=== PATIENT | male | born 1990 | race Caucasian/White ===

== ENCOUNTER 2016-10-27 15:30 | Emergency (ER) | payer OTHER ==
[~2016-10-27 15:30] MED LIST: ALBUTEROL 3 ML3 ML INH; AMOXIL 250250 MG/5 M G TUBE; ANTIBIOTIC O500 U/GM; ATIVAN0.5 MG G TUBE; ATIVAN1 MG PEG; ATIVAN1 MG PO; ATIVAN2 MG/M1 SL; ATIVAN2 MG/ML PEG; ATIVAN2 MG/ML PO; ATROVENT 0.02%2.5 ML INH; BANZEL400 MG G TUBE; CLARITIN10 MG PEG; CLARITIN5 MG/5 ML G TUBE; DIAPER RASH; DIAPER RASH TOP; DULCOLAX5 MG G TUBE; ERYTHROMYCIN 2% TOP; ERYTHROMYCIN1 GM OPH; ERYTHROMYCIN5 MG/GM TOP; ERYTHROMYCIN5 MG/GM TP; FLONASE120 SPRAY/ NAS; KEPPRA 100M100 MG/ML PEG; KLONOPIN1 MG G TUBE; LAMISIL AT1% TOP; LAMISIL1% TOP; LAMISIL250 MG TOP; LEVETIRACE100 MG/1 M G TUBE; LEVSIN 0.1250.125 MG PO; LORAZEPAM INT2 MG/ML PO; LORAZEPAM2 MG PEG; MAALOX ADVANCE148 ML; MAGNESIUM1.75 GM/30 G TUBE; MIRALAX17 G1 G TUBE; MYSOLINE250 MG G TUBE; NYSTATIN1 POW; NYSTATIN100000 U/2; PERIOGARD473 ML PO; ROBINUL 1MG TABL1 MG PEG; ROBINUL 1MG TABL1 MG PO; ROBITUSSIN COU237 ML G TUBE; SODIUM CHLORIDE3 ML PO; STOOL SOFT50 MG/5 ML G TUBE; TRANS SCOPE PAT1 PAT TOP; TYLENOL 16OMG/51 BOT G TUBE; TYLENOL TAB 32325 MG PEG
[2016-10-27 15:40] VITALS: BP 149/82
--- NOTE | 2016-10-27 17:33 | ED GENERAL ADULT ---
History of Present Illness General Chief Complaint: General Adult Stated Complaint: PT COUGHING UP BLOOD, Source: CAREGIVER Exam Limitations: clinical condition Vital Signs & Intake/Output Vital Signs & Intake/Output Vital Signs Date Time Temp Pulse Resp B/P Pulse O2 O2 Flow FiO2 Ox Delivery Rate 10/27 2120 98.7 116 18 98 Nasal 1.0L Cannula 10/27 1910 97 Room Air 10/27 1540 98.1 117 20 149/82 97 Room Air Allergies Coded Allergies: NO KNOWN ALLERGIES (10/27/16) Reconcile Medications Acetaminophen (Tylenol Tab 325 MG) 325 MG TAB 1 TAB PEG Q4P PRN FEVER/PAIN Albuterol Sulfate (Proventil) 2.5 MG/3 ML NEB 3 ML INH Q4P PRN SHORTNESS OF BREATH (Reported) Bacitracin 500 U/GM OIN 1 KATT PRN PRN INFECTION (Reported) Bisacodyl (Dulcolax) 5 MG ECT 10 MG G TUBE PRN CONSTIPATION (Reported) Chlorhexidine Gluconate (Periogard) 0.12 % MOUTHWASH 15 ML PO BID MOUTH ( Reported) Clonazepam (Klonopin) 1 MG TAB 1 TAB G TUBE 8AM ANXIETY (Reported) Dextromethorphan Hydrobromid (Robitussin Cough Dm 10 MG/5 Ml-100 MG/5 Ml 23) 237 ML LENNY 10 ML G TUBE EVERY 4 HRS/AWAKE PRN COUGH (Reported) Docusate Sodium (Stool Softener) 50 MG/5 ML LIQUID 10 ML G TUBE DAILY STOOL SOFTENER (Reported) Erythromycin 2% GEL 1 KATT TOP BID RASH (Reported) Fluticasone Propionate (Flonase) 120 SPRAY/BOT SPR 1 SPRAY SHEYLA PRN ALLERGIES (Reported) Glycopyrrolate (Robinul 1MG Tablet) 1 MG TAB 1 TAB PEG Q8 to control secretions Guaifenesin (Mucinex) 600 MG TAB.ER.12H 1 TAB PO BID COUGH Guaifenesin/Dextromethorphan (Adult Robitussin Peak Cold Liq) 100 MG-10 MG/5 ML LIQUID 10 ML G TUBE TID PRN COUGH TAKE FOR 7 DAYS Ipratropium [place] 2.5 ML NEB 2.5 ML INH Q8 PRN SHORTNESS OF BREATH Levetiracetam 100 MG/ML SOLUTION 10 ML G TUBE BID SEIZURES (Reported) Levofloxacin (Levaquin) 500 MG TABLET 1 TAB PO DAILY PRN PNA Levofloxacin (Levaquin) 500 MG TABLET 1 PRIETO G TUBE DAILY PNA Loratadine (Claritin) 5 MG/5 ML SYR 10 ML G TUBE DAILY ALLERGIES (Reported) Lorazepam 2 MG TAB 1 TAB PEG QPM ANXIETY (Reported) LORAZEPAM (Lorazepam Intensol Oral Soln 2MG/Ml) 2 MG/ML LENNY 1 MG PO PRN SEIZURE (Reported) Nystatin 1 POW POW 1 KATT TID PRN FUNGAL RASH (Reported) Polyethylene Glycol 3350 (Miralax) 17 GRAM POWD.PACK 1 PAC G TUBE DAILY CONSTIPATION (Reported) dissolve in water Primidone (Mysoline) 250 MG TAB 250 MG G TUBE 8AM SEIZURES (Reported) Primidone (Mysoline) 250 MG TAB 500 MG G TUBE 2000 SEIZURES (Reported) Rufinamide (Banzel) 400 MG TAB 4 TAB G TUBE BID SEIZURES (Reported) Sodium Chloride For Inhalation (Sodium Chloride) 0.9 % VIAL.NEB 1 VIAL PO Q6 BREATHING PROBLEMS (Reported) Terbinafine Hydrochloride (Lamisil) 1% CRE 1 KATT TOP AT BEDTIME TOE (Reported ) Zinc Oxide (Diaper Rash) 1 OIN OIN 1 KATT TOP TID PRN REDNESS AROUND G TUBE ( Reported) Triage Note: TRIAGE: PT TO ER WITH [facility] STAFF MEMBER C/C CONGESTED COUGH AND HAD 1 EPISODE OF PHLEGM WITH SOME BLOOD IN IT. PT PMHX INCLUDES CEREBRAL PALSY, USES NASAL O2 AT 1L AT BASELINE. Triage Nurses Notes Reviewed? yes Onset: Abrupt Duration: constant Timing: single episode today Severity: moderate Severity Numbers: 5 HPI: PATIENT IS A 26-year-old male with past medical history of severe mental retardation due to cerebral palsy, seizure, scoliosis, on G-tube, multiple episodes of pneumonia last admission was in July to [facility], history is limited due to past medical history in which patient presents to the emergency room noted BY caregiver in which they have noted patient have cough, congestion, and what episode of productive phlegm with TINGELED blood THAT BEGAN TODAY 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 Positive sick contacts at home of pneumonia and bronchitis No fevers no ear tugging no vomiting no apparent distress And currently has been on O2 since his last admission in which she is on 1 L of oxygen at all time (NIELS KOROMA,FRANCESCA) Past History Travel History Traveled to [place] past 21 day No ( ) Medical History Any Pertinent Medical History? see below for history Neurological: PROFOUND INTELLECTUAL D/O CEREBRAL PALSY SEIZURE DISORDER EENT: allergies, DYSPHAGIA RECURRENT ASPIRATIONS Cardiovascular: NONE Respiratory: bronchitis Gastrointestinal: G-TUBE Hepatic: NONE Renal: NONE Musculoskeletal: SCOLIOSIS Psychiatric: NONE Endocrine: NONE Blood Disorders: NONE Cancer(s): NONE MARKETING CONTENT COORDINATOR/Reproductive: NONE History of MRSA: No History of VRE: No History of CDIFF: No Pneumonia Vaccine: 06/19/14 Influenza Vaccine: 06/18/16 Surgical History Surgical History: RHODES MOHAN status post vagal nerve stimulator Psychosocial History Who do you live with Paid Attentent What is your primary language Malawian Tobacco Use: Never used ETOH Use: 5 Illicit Drug Use: U Family History Hx Contributory? No (FRANCESCA ROSA) Review of Systems Review of Systems Constitutional: Reports: see HPI. Denies: chills, fever. EENTM: Reports: no symptoms. Respiratory: Reports: see HPI, cough, hemoptysis. Cardiovascular: Reports: no symptoms. GI: Reports: no symptoms. Genitourinary: Reports: no symptoms. Musculoskeletal: Reports: no symptoms. Skin: Reports: no symptoms. Neurological/Psychological: Reports: no symptoms. Hematologic/Endocrine: Reports: no symptoms. Immunologic/Allergic: Reports: no symptoms. All Other Systems: Reviewed and Negative (FRANCESCA ROSA) Physical Exam Physical Exam General Appearance: no apparent distress, comfortable Head: atraumatic Eyes: Bilateral: normal appearance, EOMI. Ears, Nose, Throat: normal pharynx, normal ENT inspection Respiratory: normal breath sounds, chest non-tender, no respiratory distress, lungs clear Cardiovascular: tachycardia Peripheral Pulses: 2+ radial (R), 2+ radial (L) Gastrointestinal: normal bowel sounds, soft, non-tender Extremities: normal capillary refill, no edema Neurologic/Psych: awake, alert Skin: intact, normal color, warm/dry Core Measures ACS in differential dx? No CVA/TIA Diagnosis: No Severe Sepsis Present: No Septic Shock Present: No (FRANCESCA ROSA) Progress Differential Diagnoses I considered the following diagnoses in my evaluation of the patient: [Pulmonary embolism, bronchitis, pneumonia, influenza, upper respiratory infection, sepsis] Plan of Care: Orders Procedure Date/time Status RAPID VIRAL INFLUENZA A 10/27 1742 Complete BLOOD CULTURE 10/27 1742 Active D-DIMER 10/27 1742 Complete COMPREHENSIVE METABOLIC PANEL 10/27 1742 Complete CBC WITHOUT DIFFERENTIAL 10/27 1742 Complete Current Medications Sig/Jerrod Start time Last Medication Dose Stop Time Status Admin Non-Formulary 0 SEE ADMIN CRITERIA 10/27 2199 CAN Medication (NON FORMULARY) Laboratory Tests 10/27/161753: Anion Gap 11, Estimated GFR > 60, BUN/Creatinine Ratio 30.0 H, Glucose 101 H, Calcium 9.8, Total Bilirubin 0.4, AST 25, ALT 53, Alkaline Phosphatase 144 H, Total Protein 7.9, Albumin 4.4, Globulin 3.5, Albumin/Globulin Ratio 1.3, D- Dimer 431 H, CBC w Diff NO MAN DIFF REQ, RBC 4.32 L, MCV 88.1, MCH 29.6, RDW 13.5, MPV 9.0, Gran % 79.1 H, Lymphocytes % 12.7 L, Monocytes % 7.6, Eosinophils % 0.2, Basophils % 0.4, Absolute Granulocytes 13.0 H, Absolute Lymphocytes 2.1, Absolute Monocytes 1.2 H, Absolute Eosinophils 0, Absolute Basophils 0.1, PUBS MCHC 33.6 Microbiology 10/27 1801 BLOOD: Blood Culture - RECD 10/27 1756 BLOOD: Blood Culture - RECD Patient currently is in no apparent distress however patient does have history of hemoptysis is tachycardic and immobile which a d-dimer will be evaluated for rule out pulmonary embolism. Due to history of present illness I suspect patient have URI, pneumonia OR bronchitis Patient was afebrile while in the emergency room and had oxygen saturation 98% with 1 L Patient did note on CT scan to have concerns of pneumonia and due to history of present illness and exam findings the patient will be treated for CAP Patient was nontoxic-appearing blood cultures currently are pending and CT angiogram rule out pulmonary embolism Disposition plan with who agrees (NIELS KOROMA,FRANCESCA) Diagnostic Imaging: Viewed by Me: CT Scan. Radiology Impression: acute abnormality Initial ED EKG: none Comments: PATIENT: SHIRLEY BRUNO PRESENT AGE: 26 PATIENT ACCOUNT NO: [id number] : 88 LOCATION: [facility] ORDERING PHYSICIAN: FRANCESCA KOROMA SERVICE DATE: 10/27/16 EXAM TYPE: CAT - CTA CHEST-PULMONARY EMBOLISM EXAMINATION: CT ANGIOGRAM OF THE CHEST WITH AND WITHOUT CONTRAST (CT PULMONARY ANGIOGRAM FOR PE) CLINICAL INFORMATION: Elevated d-dimer. COMPARISON: CT chest 07/29/2016 TECHNIQUE: Prior to contrast administration, noncontrast localization images were obtained. Subsequently, multidetector volumetric imaging was performed from the thoracic inlet to below the diaphragms following the administration of 60 mL Optiray 320 intravenous contrast. No contrast reaction reported Sagittal, coronal, and MIP oblique sagittal reformatted images were obtained on the CT workstation, uploaded to PACS, and reviewed. Total exam dose-length product 451.29 mGy-cm FINDINGS: QUALITY OF STUDY/CONTRAST BOLUS: Satisfactory. Thoracic cage deformity from scoliosis. PULMONARY ARTERIES: No central or segmental pulmonary emboli. THORACIC AORTA: No aneurysm or dissection. LUNG: Rounded mass density in the left upper lobe. Measures 4.3 x 4.8 x 4.3 cm. Also in the left lower lobe there is a rounded mass measuring 2.6 x 2.4 x 2.5 cm. Both of these lesions are new since CAT scan of 07/29/2016. Right lung is clear. PLEURA: No pleural effusion or pneumothorax. MEDIASTINUM: Normal heart size. No pericardial effusion. No hilar or mediastinal lymphadenopathy. No evidence of septal bowing or right heart strain. CHEST WALL/AXILLA: No axillary or internal mammary lymphadenopathy. OSSEOUS STRUCTURES: Scoliosis with pericolonic and rods in the spine. UPPER ABDOMEN: Unremarkable. No reflux of contrast into the hepatic veins to suggest elevated right heart pressures. IMPRESSION: 1. No evidence of pulmonary embolism. 2. 2 rounded masses in left lung. These are new since the CAT scan of 07/29/2016. Indeterminate for etiology. Would suspect an inflammatory or infectious etiology given the rapid development since CAT scan of 07/29/2016. Neoplasm though not excluded. Consider interventional radiology consult. VTE: negative for pulmonary embolism. (FRANCESCA ROSA) Departure Departure Disposition: HOME OR SELF CARE Condition: Stable Clinical Impression Primary Impression: Pneumonia Referrals: KEEGAN GAUTHIER,NORMA (PCP/Family) Additional Instructions: As discussed begin the prescription of Levaquin as directed for the full course. Begin the prescription of guaifenesin as directed for the full course and begin [id number] Tylenol for fevers. If symptoms worsen return to emergency room. Follow-up with your primary care doctor in 2 days. Departure Forms: Customer Survey General Discharge Information Prescriptions: Current Visit Scripts Levofloxacin (Levaquin) 1 TAB PO DAILY PRN PNA #10 TAB Guaifenesin (Mucinex) 1 TAB PO BID #14 TAB Levofloxacin (Levaquin) 1 PRIETO G TUBE DAILY #10 TAB Guaifenesin/Dextromethorphan (Adult Robitussin Peak Cold Liq) 10 ML G TUBE TID PRN COUGH #210 ML TAKE FOR 7 DAYS (FRANCESCA ROSA) PA/MERCHANDISING CONSULTANT Co-Sign Statement Statement: ED Attending supervision documentation- [] I saw and evaluated the patient. I have also reviewed all the pertinent lab results and diagnostic results. I agree with the findings and the plan of care as documented in the PA's/MERCHANDISING CONSULTANT's documentation. [X] I have reviewed the ED Record and agree with the PA's/MERCHANDISING CONSULTANT's documentation. [] Additions or exceptions (if any) to the PAs/MERCHANDISING CONSULTANT's note and plan are summarized below: [] (JONNY GAUTHIER,ALEJANDRO) Critical Care Note Critical Care Note Critical Care Time: non-applicable (FRANCESCA ROSA)
[2016-10-27 18:29] LABS: ABSOLUTE BASOPHIL COUNT 0.1 /CUMM (0.0-0.2); ABSOLUTE EOSINOPHIL COUNT 0 /CUMM (0.0-0.7); ABSOLUTE LYMPH COUNT 2.1 /CUMM (1.2-3.4); ABSOLUTE MONOCYTE COUNT 1.2 /CUMM (0.10-0.60); BASOPHIL % 0.4 % (0.0-2.0); EOSINOPHIL % 0.2 % (0-5); GRANULOCYTE % 79.1 % (42.2-75.2); HEMATOCRIT 38.1 % (42-52); MEAN CORPUSCULAR HGB 29.6 PG (27.0-31.0); MEAN CORPUSCULAR HGB CONC 33.6 G/DL (33.0-37.0); MEAN CORPUSCULAR VOLUME 88.1 FL (80.0-94.0); PLATELET COUNT 366 /CUMM (130-400); RBC DISTRIBUTION WIDTH 13.5 % (11.5-14.5); RED BLOOD CELL CT 4.32 /CUMM (4.70-6.10); WHITE BLOOD CELL COUNT 16.4 /CUMM (4.8-10.8)
--- NOTE | 2016-10-27 21:29 | CT SCAN REPORT ---
EXAMINATION: CT ANGIOGRAM OF THE CHEST WITH AND WITHOUT CONTRAST (CT PULMONARY ANGIOGRAM FOR PE) CLINICAL INFORMATION: Elevated d-dimer. COMPARISON: CT chest 07/29/2016 TECHNIQUE: Prior to contrast administration, noncontrast localization images were obtained. Subsequently, multidetector volumetric imaging was performed from the thoracic inlet to below the diaphragms following the administration of 60 mL Optiray 320 intravenous contrast. No contrast reaction reported Sagittal, coronal, and MIP oblique sagittal reformatted images were obtained on the CT workstation, uploaded to PACS, and reviewed. Total exam dose-length product 451.29 mGy-cm FINDINGS: QUALITY OF STUDY/CONTRAST BOLUS: Satisfactory. Thoracic cage deformity from scoliosis. PULMONARY ARTERIES: No central or segmental pulmonary emboli. THORACIC AORTA: No aneurysm or dissection. LUNG: Rounded mass density in the left upper lobe. Measures 4.3 x 4.8 x 4.3 cm. Also in the left lower lobe there is a rounded mass measuring 2.6 x 2.4 x 2.5 cm. Both of these lesions are new since CAT scan of 07/29/2016. Right lung is clear. PLEURA: No pleural effusion or pneumothorax. MEDIASTINUM: Normal heart size. No pericardial effusion. No hilar or mediastinal lymphadenopathy. No evidence of septal bowing or right heart strain. CHEST WALL/AXILLA: No axillary or internal mammary lymphadenopathy. OSSEOUS STRUCTURES: Scoliosis with pericolonic and rods in the spine. UPPER ABDOMEN: Unremarkable. No reflux of contrast into the hepatic veins to suggest elevated right heart pressures. IMPRESSION: 1. No evidence of pulmonary embolism. 2. 2 rounded masses in left lung. These are new since the CAT scan of 07/29/2016. Indeterminate for etiology. Would suspect an inflammatory or infectious etiology given the rapid development since CAT scan of 07/29/2016. Neoplasm though not excluded. Consider interventional radiology consult. VTE: negative for pulmonary embolism.
[2016-10-27] MEDS ORDERED: LEVAQUIN500 M1 PO (21:50)
[2016-10-27] MEDS ORDERED: MUCINEX600 M1 PO (21:50)
[2016-10-27] MEDS ORDERED: ADULT ROBITUSS118 ML G TUBE (22:05)
[2016-10-27] MEDS ORDERED: LEVAQUIN500 M1 G TUBE (22:05)
== END 2016-10-27 22:58 ==
LOC: ERH 15:30
PROVIDERS: Physician Assistant
DX: J18.9 Pneumonia, unspecified organism (principal)
CPT/HCPCS: 87040; 87804; 87804-59

== ENCOUNTER 2017-03-21 08:48 | Emergency (ER) | payer OTHER, MEDICARE ==
[~2017-03-21] VITALS: Ht 149.9 cm; Wt 63.5 kg
[~2017-03-21 08:48] MED LIST changes: +ADULT ROBITUSS118 ML G TUBE; -ALBUTEROL 3 ML3 ML INH; +ALBUTEROL2.5 MG/3 M INH/SOL; -ANTIBIOTIC O500 U/GM; +BACITRACIN28.4 GM TOP; +BANZEL G TUBE; -BANZEL400 MG G TUBE; +CLARITIN5 MG/5 M1 G TUBE; -DIAPER RASH TOP; +DIAPER RASH57 GM TOP; -ERYTHROMYCIN 2% TOP; +ERYTHROMYCIN 2%60 ML TOP; +FLONASE ALLERG9.9 ML NAS; -FLONASE120 SPRAY/ NAS; +KLONOPIN1 M1 PO; -KLONOPIN1 MG G TUBE; +LAMISIL AT30 GM TOP; -LAMISIL1% TOP; +LEVAQUIN500 M1 G TUBE; +LEVAQUIN500 M1 PO; +LORAZEPAM I2 MG/1 ML SL; -LORAZEPAM2 MG PEG; +MUCINEX600 M1 PO; +MYSOLINE250 M1 G TUBE; -MYSOLINE250 MG G TUBE; +NYSTATIN1 EAC8 TOP; -NYSTATIN1 POW
--- NOTE | 2017-03-21 09:47 | RADIOLOGY REPORT ---
EXAMINATION: XR PORTABLE CHEST CLINICAL INFORMATION: Shortness of breath. COMPARISON: Multiple priors, most recently 01/13/2017. TECHNIQUE: Portable frontal view of the chest was obtained. FINDINGS: Chronic chest wall deformity with scoliosis. Spinal hardware in place. Left chest wall generator again noted. Low lung volumes. Retrocardiac opacity noted. The right lung is clear. No pneumothorax. The cardiomediastinal silhouette is unchanged. Chronic irregularity at the left shoulder. IMPRESSION: Retrocardiac opacity may represent atelectasis or pneumonia. Aspiration is a consideration.
--- NOTE | 2017-03-21 09:59 | ED DYSPNEA/ASTHMA COMPLAINT ---
History of Present Illness General Chief Complaint: Dyspnea (COPD, CHF, Other) Stated Complaint: BIBA FROSNF FOR LOW O2 SAT Vital Signs & Intake/Output Vital Signs & Intake/Output Vital Signs Date Time Temp Pulse Resp B/P B/P Pulse O2 O2 Flow FiO2 Mean Ox Delivery Rate 03/21 1008 98.0 89 22 119/72 96 Nasal 2.0L Cannula 03/21 0936 97 Nasal 2.0L Cannula 03/21 0925 95 Nasal 3.0L Cannula 03/21 0924 97.1 101 24 112/63 95 Nasal 3.0L Cannula Allergies Coded Allergies: NO KNOWN ALLERGIES (10/27/16) Reconcile Medications Acetaminophen (Tylenol Tab 325 MG) 325 MG TAB 1 TAB PEG Q4P PRN FEVER/PAIN Albuterol Sulfate (Proventil) 2.5 MG/3 ML NEB 3 ML INH Q4P PRN SHORTNESS OF BREATH (Reported) Bacitracin 500 U/GM OIN 1 KATT PRN PRN INFECTION (Reported) Bisacodyl (Dulcolax) 5 MG ECT 10 MG G TUBE PRN CONSTIPATION (Reported) Chlorhexidine Gluconate (Periogard) 0.12 % MOUTHWASH 15 ML PO BID MOUTH ( Reported) Clonazepam (Klonopin) 1 MG TAB 1 TAB G TUBE 8AM ANXIETY (Reported) Dextromethorphan Hydrobromid (Robitussin Cough Dm 10 MG/5 Ml-100 MG/5 Ml 23) 237 ML LENNY 10 ML G TUBE EVERY 4 HRS/AWAKE PRN COUGH (Reported) Docusate Sodium (Stool Softener) 50 MG/5 ML LIQUID 10 ML G TUBE DAILY STOOL SOFTENER (Reported) Erythromycin 2% GEL 1 KATT TOP BID RASH (Reported) Fluticasone Propionate (Flonase) 120 SPRAY/BOT SPR 1 SPRAY SHEYLA PRN ALLERGIES (Reported) Glycopyrrolate (Robinul 1MG Tablet) 1 MG TAB 1 TAB PEG Q8 to control secretions Guaifenesin (Mucinex) 600 MG TAB.ER.12H 1 TAB PO BID COUGH Guaifenesin/Dextromethorphan (Adult Robitussin Peak Cold Liq) 100 MG-10 MG/5 ML LIQUID 10 ML G TUBE TID PRN COUGH TAKE FOR 7 DAYS Ipratropium [place] 2.5 ML NEB 2.5 ML INH Q8 PRN SHORTNESS OF BREATH Levetiracetam 100 MG/ML SOLUTION 10 ML G TUBE BID SEIZURES (Reported) Levofloxacin (Levaquin) 500 MG TABLET 1 TAB PO DAILY PRN PNA Levofloxacin (Levaquin) 500 MG TABLET 1 PRIETO G TUBE DAILY PNA Loratadine (Claritin) 5 MG/5 ML SYR 10 ML G TUBE DAILY ALLERGIES (Reported) Lorazepam 2 MG TAB 1 TAB PEG QPM ANXIETY (Reported) LORAZEPAM (Lorazepam Intensol Oral Soln 2MG/Ml) 2 MG/ML LENNY 1 MG PO PRN SEIZURE (Reported) Nystatin 1 POW POW 1 KATT TID PRN FUNGAL RASH (Reported) Polyethylene Glycol 3350 (Miralax) 17 GRAM POWD.PACK 1 PAC G TUBE DAILY CONSTIPATION (Reported) dissolve in water Primidone (Mysoline) 250 MG TAB 250 MG G TUBE 8AM SEIZURES (Reported) Primidone (Mysoline) 250 MG TAB 500 MG G TUBE 2000 SEIZURES (Reported) Rufinamide (Banzel) 400 MG TAB 4 TAB G TUBE BID SEIZURES (Reported) Sodium Chloride For Inhalation (Sodium Chloride) 0.9 % VIAL.NEB 1 VIAL PO Q6 BREATHING PROBLEMS (Reported) Terbinafine Hydrochloride (Lamisil) 1% CRE 1 KATT TOP AT BEDTIME TOE (Reported ) Zinc Oxide (Diaper Rash) 1 OIN OIN 1 KATT TOP TID PRN REDNESS AROUND G TUBE ( Reported) Triage Note: 27 YEAR OLD MALE TO ER VIA AMBULANCE FROM LOCAL [facility] FOR LOW O2 SATS, PT IS O2 DEPENDENT ON 2L VIA NC AND PER STAFF SATURATIONS HAVE BEEN DROPPING SINCE YESTERDAY. ON ARRIVAL PT ON 4L VIA NC AND O2 SAYS 92 5, PT NOTED WITH RHONCHI AND LOOSE COUGH, PT HAS HISTORY OF ASPIRATION, HAS G-TUBE TO L SIDE ABD. RESP CALLED AND MELISSA AT BEDSIDE TO SUCTION PT, PT ABLE TO COUGH UP MODERATE AMOUNT OF THICK YELLOW SPUTUM.O2 SAT INCREASED TO 97 % ON THE 4L AFTER SUCTION COMPLETE. AFEBRILE AT THIS TIME. O2 DECREASED TO 3L VIA NC AT THIS TIME. WILL CONTINUE TO MONITOR. HPI: Mr. Nguyễn 27 YO M PMH of cerebral palsy, scoliosis, dysphagia, intellectual disorder, H/O seizures and spinal surgery was brought to ED from [facility] facility with CC of dyspnea. Patient can't speak so we looked into his previous history. According to his care trainer usually he is on 2L of O2 and that's his baseline but last night they noticed the desaturation and they sent the patient to ED this morning. When i went to saw the patient he was on 4L of O2 with saturation of 89% and crackles all over his chest and feeding tube(G-tube). Patient was in moderate distress even with O2 untill the respuiratory therapist came in and did the suction and removed the large thick mucus plug. Now patient is back to his baseline 2L of O2 and 98% saturation. (CATINA SPENCER MD) General Source: old records, EMS, W10 Exam Limitations: physical impairment Triage Nurses Notes Reviewed? yes (ZANDER CAPUTO MD) Past History Travel History Traveled to [place] past 21 day No Medical History Neurological: PROFOUND INTELLECTUAL D/O CEREBRAL PALSY SEIZURE DISORDER EENT: allergies, DYSPHAGIA RECURRENT ASPIRATIONS Cardiovascular: NONE Respiratory: bronchitis Gastrointestinal: G-TUBE Hepatic: NONE Renal: NONE Musculoskeletal: SCOLIOSIS Psychiatric: NONE Endocrine: NONE Blood Disorders: NONE Cancer(s): NONE TOMOGRAPHY TECHNOLOGIST/Reproductive: NONE History of MRSA: No History of VRE: No History of CDIFF: No Surgical History Surgical History: RHODES MOHAN status post vagal nerve stimulator Psychosocial History Who do you live with Paid Attentent What is your primary language Turkish Tobacco Use: Never used ETOH Use: denies use Illicit Drug Use: denies illicit drug use (CATINA SPENCER MD) Medical History Any Pertinent Medical History? see below for history Family History Hx Contributory? No (ZANDER CAPUTO MD) Review of Systems Review of Systems Constitutional: Reports: see HPI. Respiratory: Reports: see HPI. (ZANDER CAPUTO MD) Physical Exam Physical Exam General Appearance: awake, moderate distress Eyes: Bilateral: normal appearance. Neck: normal inspection Respiratory: crackles, stridor Cardiovascular: regular rate/rhythm Gastrointestinal: normal bowel sounds (CATINA SPENCER MD) Physical Exam Head: atraumatic Ears, Nose, Throat: normal pharynx Neurologic/Psych: AT BASELINE Skin: intact, normal color Core Measures ACS in differential dx? No Severe Sepsis Present: No Septic Shock Present: No (ZANDER CAPUTO MD) Progress Differential Diagnosis: asthma, pneumonia, Aspiration pneumonia upper airway obstruction Plan of Care: Orders Procedure Date/time Status BLOOD CULTURE 03/21 917 Active COMPREHENSIVE METABOLIC PANEL 03/21 917 Complete CBC WITHOUT DIFFERENTIAL 03/21 917 Complete Laboratory Tests 03/21/17 1002: Anion Gap 12, Estimated GFR > 60, BUN/Creatinine Ratio 32.5 H, Glucose 106 H, Calcium 9.6, Total Bilirubin 0.3, AST 18, ALT 44, Alkaline Phosphatase 157 H, Total Protein 8.0, Albumin 4.9, Globulin 3.1, Albumin/Globulin Ratio 1.6, CBC w Diff MAN DIFF ORDERED, RBC 4.80, MCV 89.0, MCH 29.7, RDW 14.5, MPV 9.4, Gran % 84.0 H, Lymphocytes % 8.4 L, Monocytes % 6.8, Eosinophils % 0.7, Basophils % 0.1, Absolute Granulocytes 10.8 H, Absolute Lymphocytes 1.1 L, Absolute Monocytes 0.9 H, Absolute Eosinophils 0.1, Absolute Basophils 0, Platelet Estimate ADEQUATE, Normocytic RBCs VERIFIED, Normochromic RBCs VERIFIED, PUBS MCHC 33.4 Microbiology 03/21 935 BLOOD: Blood Culture - RECD 03/21 917 BLOOD: Blood Culture - ORD Looking at his history and physical we planned to ordern O2, suction, labs, c- xray, blood cultures and atrovent and albuterol. He is afibrile but we are suspecting aspiration pneumonia so ordered blood cultures and to relieve bronchospasm and crackles we will nebulize him with atrovent and albuterol. We will assess the patient again and look at the lab results for further management. (TJ GAUTHIER,CATINA) Diagnostic Imaging: Viewed by Me: Radiology Read. Discussed w/RAD: Radiology Read. CXR Impression: PATIENT: SHIRLEY NGUYỄN PRESENT AGE: 27 PATIENT ACCOUNT NO: [id number] : 88 LOCATION: [facility] ORDERING PHYSICIAN: CATINA SPENCER MD SERVICE DATE: 03/21/17 EXAM TYPE: RAD - XRY -PORTABLE CHEST XRAY EXAMINATION: XR PORTABLE CHEST CLINICAL INFORMATION: Shortness of breath. COMPARISON: Multiple priors, most recently 01/13/2017. TECHNIQUE: Portable frontal view of the chest was obtained. FINDINGS: Chronic chest wall deformity with scoliosis. Spinal hardware in place. Left chest wall generator again noted. Low lung volumes. Retrocardiac opacity noted. The right lung is clear. No pneumothorax. The cardiomediastinal silhouette is unchanged. Chronic irregularity at the left shoulder. IMPRESSION: Retrocardiac opacity may represent atelectasis or pneumonia. Aspiration is a consideration. DICTATED BY: ALFRED ERICKSON MD DATE/TIME DICTATED:03/21/17940 RESOURCE ANALYST: CHAY DATE/TIME TRANSCRIBED:03/21/17940 CONFIDENTIAL, DO NOT COPY WITHOUT APPROPRIATE AUTHORIZATION. <Electronically signed in Other Vendor System> SIGNED BY: ALFRED ERICKSON MD 03/21/17 8106 Initial ED EKG: none Comments: Patient coughed up and was helped by respiratory with suctioning of very thick mucous plug. After the mucous plug was out of his oxygen saturation normalized and he appeared a lot more comfortable. (PATITO GAUTHIER,ZANDER Meyer) Departure Departure Condition: Stable Referrals: NORMA ALLISON MD (PCP/Family) Departure Forms: Customer Survey General Discharge Information (TJ GAUTHIER,CATINA) Departure Disposition: ACUTE REHAB FACILITY Clinical Impression Primary Impression: Mucus plugging of bronchi Additional Instructions: REUTRN FOR ANY CONCERNS Resident Co-Sign Statement Statement: ED Attending supervision documentation- [X] I saw and evaluated the patient. I have also reviewed all the pertinent lab results and diagnostic results. I agree with the findings and the plan of care as documented in the Resident's documentation. [X] I have reviewed the ED Record and agree with the Resident's documentation. [] Additions or exceptions (if any) to the Resident's note and plan are summarized below: [Patient sent in for evaluation of dyspnea. Patient has cerebral palsy and has a PEG tube in. Patient does have a history of aspiration pneumonia. There's been no vomiting. No fevers. Positive nonproductive but wet sounding cough. On exam he does have a lot of upper airway sounds. After the mucous plug was removed his lungs are clear to auscultation bilaterally.] (ZANDER CAPUTO MD) Critical Care Note Critical Care Note Critical Care Time: non-applicable (ZANDER CAPUTO MD)
[2017-03-21 10:08] VITALS: BP 119/72
[2017-03-21 10:10] LABS: ABSOLUTE BASOPHIL COUNT 0 /CUMM (0.0-0.2); ABSOLUTE EOSINOPHIL COUNT 0.1 /CUMM (0.0-0.7); ABSOLUTE GRANULOCYTE CT 10.8 /CUMM (1.4-6.5); ABSOLUTE LYMPH COUNT 1.1 /CUMM (1.2-3.4); ABSOLUTE MONOCYTE COUNT 0.9 /CUMM (0.10-0.60); BASOPHIL % 0.1 % (0.0-2.0); EOSINOPHIL % 0.7 % (0-5); HEMATOCRIT 42.8 % (42-52); MEAN CORPUSCULAR HGB 29.7 PG (27.0-31.0); MEAN CORPUSCULAR HGB CONC 33.4 G/DL (33.0-37.0); MEAN PLATELET VOLUME 9.4 FL (7.4-10.4); PLATELET COUNT 258 /CUMM (130-400); RBC DISTRIBUTION WIDTH 14.5 % (11.5-14.5); WHITE BLOOD CELL COUNT 12.9 /CUMM (4.8-10.8)
== END 2017-03-21 12:04 ==
LOC: ERH 08:48
PROVIDERS: Student in an Organized Health Care Education/Training Program
DX: T17.900A Unspecified foreign body in respiratory tract, part unspecified causing asphyxiation, initial encounter (principal)
CPT/HCPCS: 1263; 1342; 87040

== ENCOUNTER 2017-03-31 09:15 | Inpatient (IN) | payer OTHER, MEDICARE ==
[~2017-03-31] VITALS: Ht 152.4 cm; Wt 68.0 kg
--- NOTE | 2017-03-31 09:20 | ED DYSPNEA/ASTHMA COMPLAINT ---
History of Present Illness General Chief Complaint: Dyspnea (COPD, CHF, Other) Stated Complaint: BIBA, SOB Source: old records, EMS Exam Limitations: MR Allergies Coded Allergies: NO KNOWN ALLERGIES (10/27/16) Reconcile Medications Acetaminophen (Tylenol) 325 MG TABLET 2 TAB PO Q4 HRS NEEDED PRN MILD PAIN/ FEVER (Reported) Albuterol Sulfate 2.5 MG/3 ML (0.083 %) VIAL.NEB 1 Vial INH/LENNY Q4P PRN WHEEZING (Reported) Bacitracin 500 UNIT/GRAM OINT...G. 1 KATT TOP 4 TIMES/DAY AFFECTED AREAS ( Reported) apply to affected area(s) Clonazepam (Klonopin) 1 MG TABLET 1 TAB PO DAILY ANXIETY (Reported) Docusate Sodium (Stool Softener) 50 MG/5 ML LIQUID 10 ML G TUBE DAILY STOOL SOFTENER (Reported) Erythromycin Base/Ethanol (Erythromycin 2% Solution) 2 % SOLUTION 1 KATT TOP BID RASH (Reported) Fluticasone Propionate (Flonase Allergy Relief) 50 MCG/ACTUATION SPRAY.SUSP 1 SPRAY SHEYLA DAILY ALLERGIES (Reported) Glycopyrrolate 1 MG TABLET 1 TAB PO Q8 SECRETION (Reported) Guaifenesin/Dextromethorphan (Adult Robitussin Peak Cold Liq) 100 MG-10 MG/5 ML LIQUID 10 ML G TUBE TID PRN COUGH TAKE FOR 7 DAYS Ipratropium [place] 0.2 MG/ML (0.02 %) SOLUTION 1 Vial INH/LENNY Q6 BREATHING PROBLEMS (Reported) Lactose-Reduced Food/Fiber (Jevity 1.5 Sam Liquid) 0.06 GRAM-1.5 KCAL/ML LIQUID 1 CAN G TUBE 5 TIMES A DAY SUPPLEMENT (Reported) Loratadine (Claritin) 5 MG/5 ML SOLUTION 10 ML G TUBE DAILY ALLERGIES ( Reported) Lorazepam (Ativan) 2 MG TABLET 1 TAB PO AT BEDTIME ANXIETY (Reported) Lorazepam (Lorazepam Intensol) 2 MG/ML ORAL.CONC 1 ML SL DAILY PRN AFTER SEIZURE (Reported) Nystatin 1 BILLION UNIT POWDER.EA. 1 KATT TOP BID PRN AFFECTED AREAS (Reported ) Perampanel (Fycompa) 6 MG TABLET 1 TAB G TUBE DAILY SEIZURES (Reported) Polyethylene Glycol 3350 (Miralax) 17 GRAM POWD.PACK 1 PAC G TUBE DAILY CONSTIPATION (Reported) dissolve in water Primidone (Mysoline) 250 MG TABLET 1 TAB G TUBE DAILY SEIZURES (Reported) Primidone (Mysoline) 250 MG TABLET 2 TAB G TUBE QPM SEIZURES (Reported) Rufinamide (Banzel) 400 MG TABLET 4 TAB G TUBE BID SEIZURES (Reported) Sodium Chloride For Inhalation (Sodium Chloride) 0.9 % VIAL.NEB 1 VIAL PO Q6 BREATHING PROBLEMS (Reported) Terbinafine HCl (Lamisil At) 1 % CREAM..G. 1 KATT TOP AT BEDTIME NAILS ( Reported) Zinc Oxide (Diaper Rash) 10 % OINT...G. 1 KATT TOP DAILY PRN AFFECTED AREAS ( Reported) Triage Nurses Notes Reviewed? yes Onset: Abrupt Duration: day(s): (1), constant Timing: recent history Severity: moderate Prior Episodes/Possible Cause: frequent episodes Associated Symptoms: cough HPI: 27 year old male with history of severe mental retardation due to cerebral palsy , seizure, scoliosis, on G-tube feeding, history of aspiration pna presents brought in by a halfway after the patient was noted to have low O2 sats. He was seen here 10 days ago for similar symptoms and was discharged home. On arrival patient offers no history secondary to MR. He is nonverbal at baseline offers no complaints afebrile. No modifying factors or assocaited sx otherwise (FRANCESCA VERDIN) Vital Signs & Intake/Output Vital Signs & Intake/Output Vital Signs Date Time Temp Pulse Resp B/P B/P Pulse O2 O2 Flow FiO2 Mean Ox Delivery Rate 03/31 1309 97.0 97 20 120/70 100 Nasal 3.0L Cannula 03/31 1015 96.2 104 20 126/72 94 Nasal 3.0L Cannula 03/31 0940 96 Nasal 3.0L Cannula Past History Travel History Traveled to [place] past 21 day No Medical History Any Pertinent Medical History? see below for history Neurological: PROFOUND INTELLECTUAL D/O CEREBRAL PALSY SEIZURE DISORDER EENT: allergies, DYSPHAGIA RECURRENT ASPIRATIONS Cardiovascular: NONE Respiratory: bronchitis Gastrointestinal: G-TUBE Hepatic: NONE Renal: NONE Musculoskeletal: SCOLIOSIS Psychiatric: NONE Endocrine: NONE Blood Disorders: NONE Cancer(s): NONE SYSTEMS ADMIN/Reproductive: NONE History of MRSA: No History of VRE: No History of CDIFF: No Surgical History Surgical History: RHODES MOHAN status post vagal nerve stimulator Psychosocial History Who do you live with Paid Attentent What is your primary language Ethiopian Family History Hx Contributory? No (FRANCESCA VERDIN) Review of Systems Review of Systems Constitutional: Reports: see HPI. Comments Review of systems: LIMITED SECONDARY TO PTS HISTORY OF MR/nonverbal no investigative shopper present at this time (FRANCESCA VERDIN) Physical Exam Physical Exam General Appearance: well developed/nourished, lethargic Respiratory: rhonchi Comments: Well-developed well-nourished person in no acute distress HEENT: Normal EENT exam; PERRL, EOMI. HEAD is atraumatic. moist mucous membranes. Neck: Supple, , normal range of motion Back: Nontender, Full range of motion Cardiovascular: Regular rate and rhythms no murmurs rubs Respiratory: Chest nontender.There were no bony deformities, no asymmetry. No respiratory distress. Lung sounds rhonchorous no wheezing Abdomen: Soft, nontender nondistended Extremity: No edema, full range of motion of extremities, Neuro: Alert oriented x3, motor sensory normal, There were no obvious focal neurologic abnormalities. Skin: No appreciable rash on exposed skin, skin is warm and dry. Psych: Mood and affect is normal, memory and judgment is normal. Core Measures ACS in differential dx? No Severe Sepsis Present: No Septic Shock Present: No (FRANCESCA VERDIN) Progress Differential Diagnosis: asthma, bronchitis, musculoskeletal pain, pericarditis, pneumonia, pneumothorax Diagnostic Imaging: Viewed by Me: Radiology Read. Discussed w/RAD: Radiology Read. Radiology Impression: PATIENT: SHIRLEY BRUNO PRESENT AGE: 27 PATIENT ACCOUNT NO: [id number] : 88 LOCATION: [facility] ORDERING PHYSICIAN: FRANCESCA KOROMA SERVICE DATE: 03/31/17 EXAM TYPE: RAD - XRY-PORTABLE CHEST XRAY EXAMINATION: XR PORTABLE CHEST CLINICAL INFORMATION: Cough and dyspnea. COMPARISON: Chest x-ray 03/21/2017. TECHNIQUE: Portable supine frontal view of the chest was obtained. FINDINGS: The study redemonstrates the chronic dextroscoliosis. There are incompletely visualized vertical metallic rods and cerclage wires in the mid and lower thoracic spine. There is marked crowding of the posterior ribs on the left. The right lung is poorly expanded compared to the left. There is new opacity at the right base, which may be consistent with developing consolidation or atelectasis. The cardiac silhouette is normal in size. The left chest wall generator with cephalad extending leads are unchanged. There are degenerative changes at the left shoulder joint. IMPRESSION: 1. There is new opacity at the right base which may be consistent with atelectasis or developing consolidation. DICTATED BY: PHILIP GUZMAN MD DATE/TIME DICTATED:03/31/17949 MERCURY WASHER:CHAY DATE/TIME TRANSCRIBED:03/31/17949 CONFIDENTIAL, DO NOT COPY WITHOUT APPROPRIATE AUTHORIZATION. <Electronically signed in Other Vendor System> SIGNED BY: PHILIP GUZMAN MD 03/31/17 0957 Initial ED EKG: none (CHAVA KOROMA,FRANCESCA) Plan of Care: Orders Procedure Date/time Status CBC WITHOUT DIFFERENTIAL 04/01 0600 Active BASIC ELECTROLYTES PLUS BUN&CR 04/01 0600 Active Tube Feeding 03/31 D Active STREP PNEUMO URINARY ANTIGEN 03/31 1247 Active LEGIONELLA URINARY ANTIGEN 03/31 1247 Active Code Status 03/31 1229 Active LACTIC ACID 03/31 1219 Active URINALYSIS 03/31 1146 Complete TRC EVALUATION (GEN) 03/31 1144 Active OXYGEN SETUP (GEN) 03/31 1144 Active Pathway - chart 03/31 1144 Active House Staff 03/31 1144 Active SPECIMEN TO BE OBTAINED 03/31 1144 Active Misc Message 03/31 1100 Active ED Holding Orders 03/31 1100 Active Vital Signs 03/31 1100 Active Code Status 03/31 1100 Complete Patient Data 03/31 1055 Active Admit to inpatient 03/31 1053 Active BLOOD CULTURE 03/31 0919 Active LACTIC ACID 03/31 0919 Complete COMPREHENSIVE METABOLIC PANEL 03/31 0919 Complete CBC WITHOUT DIFFERENTIAL 03/31 0919 Complete VTE Mechanical Prophylaxis 03/31 UNK Active Vital Signs 03/31 UNK Active Seizure Precautions 03/31 UNK Active Precautions 03/31 UNK Active NGT 03/31 UNK Active Intake & Output 03/31 UNK Active Current Medications Sig/Jerrod Start time Last Medication Dose Stop Time Status Admin Clonazepam 1 MG DAILY 04/01 1000 AC (Klonopin 1MG Tab) 04/08 0959 Docusate Sodium 100 MG DAILY 04/01 1000 AC (Colace) Fluticasone 2 SPRAY DAILY 04/01 1000 AC Propionate (Flonase) Loratadine 10 MG DAILY 04/01 1000 UNVr (Claritin) Polyethylene Glycol 17 GM DAILY 04/01 1000 AC (Miralax) Primidone 250 MG DAILY 04/01 1000 UNVr (Mysoline) Zinc Oxide 1 KATT DAILY 04/01 1000 AC (Desitin) Erythromycin 1 KATT BID 03/31 2200 AC (Erythromycin Oph Ointment) Lorazepam 2 MG AT BEDTIME 03/31 2200 UNVr (Ativan) Primidone 500 MG QPM 03/31 2200 UNVr (Mysoline) Ampicillin Sodium/ 3,000 MG Q6 03/31 1800 UNVr Sulbactam Sodium (Unasyn) Sodium Chloride 100 ML (Normal Saline 0.9%) Ipratropium [place] 2.5 ML Q6 03/31 1800 UNVr (Atrovent) Mupirocin 1 KATT Q6 03/31 1800 UNVr (Bactroban) Heparin Sodium 5,000 UNIT Q8 03/31 1400 AC (Porcine) Sodium Chloride 1,000 ML Q13H 03/31 1300 AC 03/31 (Normal Saline 0.9%) 04/01 1459 1306 Albuterol Sulfate 3 ML Q4P PRN 03/31 1245 AC (Proventil) Guaifenesin 10 ML Q6P PRN 03/31 1245 AC (Robitussin) Non-Formulary 0 SEE ADMIN CRITERIA 03/31 1245 UNVr Medication (NON FORMULARY) Non-Formulary 0 SEE ADMIN CRITERIA 03/31 1245 UNVr Medication (NON FORMULARY) Non-Formulary 0 SEE ADMIN CRITERIA 03/31 1245 UNVr Medication (NON FORMULARY) Nystatin 1 KATT BID PRN 03/31 1245 UNVr (Mycostatin) Sodium Chloride 2 SPRAY Q4P PRN 03/31 1245 AC (Nasal) Azithromycin 500 MG ONCE ONE 03/31 1215 CAN (Zithromax) 03/31 1314 Sodium Chloride 250 ML (Normal Saline 0.9%) Ceftriaxone Sodium 1,000 MG ONCE ONE 03/31 1215 CAN (Rocephin) 03/31 1216 Acetaminophen 650 MG Q6P PRN 03/31 1145 AC (Tylenol) Acetaminophen/ 1 TAB Q6P PRN 03/31 1145 AC Hydrocodone Bitart (Vicodin) Morphine Sulfate 2 MG Q4P PRN 03/31 1145 AC (Morphine) Laboratory Tests 03/31/17 1251: Lactic Acid Pending 03/31/17 1200: Urine Color STRAW, Urine Clarity CLEAR, Urine pH 7.5, Ur Specific [place] 1.015, Urine Protein NEG, Urine Ketones NEG, Urine Nitrite NEG, Urine Bilirubin NEG, Urine Urobilinogen 0.2, Ur Leukocyte Esterase NEG, Ur Microscopic EXAM NOT REQUIRED, Urine Hemoglobin NEG, Urine Glucose NEG 03/31/17 1010: Anion Gap 12, Estimated GFR > 60, BUN/Creatinine Ratio 32.5 H, Glucose 104 H, Lactic Acid 2.0, Calcium 9.4, Total Bilirubin 0.3, AST 16 L, ALT 32, Alkaline Phosphatase 144 H, Total Protein 7.4, Albumin 4.3, Globulin 3.1, Albumin/ Globulin Ratio 1.4, CBC w Diff NO MAN DIFF REQ, RBC 4.33 L, MCV 89.6, MCH 29.9, RDW 13.8, MPV 8.7, Gran % 68.4, Lymphocytes % 21.6, Monocytes % 9.3, Eosinophils % 0.4, Basophils % 0.3, Absolute Granulocytes 8.8 H, Absolute Lymphocytes 2.8, Absolute Monocytes 1.2 H, Absolute Eosinophils 0.1, Absolute Basophils 0, PUBS MCHC 33.4 Microbiology 03/31 1247 URINE ROUT: Legionella Antigen - ORD 03/31 1247 URINE ROUT: Streptococcus pneumoniae Antigen (M - ORD 03/31 1043 BLOOD: Blood Culture - RECD 03/31 1010 BLOOD: Blood Culture - RECD Old records reviewed labs ordered DuoNeb ordered chest x-ray ordered records from previous visit on March 21 were reviewed patient on 4 L 92% I discussed with the patient's halfway investigative shopper all of his labs to date and x-ray findings need for admission which she is in agreement with. The patient was seen and evaluated by Dr. Rios who agrees with the plan Case discussed with Dr. house will admit (FRANCESCA VERDIN) Departure Departure Time of Disposition: 1045 Disposition: STILL A PATIENT Condition: Stable Clinical Impression Primary Impression: Aspiration pneumonia Referrals: NORMA ALLISON MD (PCP/Family) Departure Forms: Customer Survey General Discharge Information Admission Note Spoke With: MATA AGUILAR MD Documentation of Exam: Documentation of any treatments & extenuating circumstances including Concerns Regarding Discharge (functional status, medication knowledge or non-compliance, living conditions, etc.) that warrant an admission rather than observation: Trend labs IV antibiotics and possible pulmonology consult trend cultures premature discharge to be medically harmful respiratory treatments when necessary (FRANCESCA VERDIN) PA/ROUGH PLANER TENDER Co-Sign Statement Statement: ED Attending supervision documentation- [X] I saw and evaluated the patient. I have also reviewed all the pertinent lab results and diagnostic results. I agree with the findings and the plan of care as documented in the PA's/ROUGH PLANER TENDER's documentation. [] I have reviewed the ED Record and agree with the PA's/ROUGH PLANER TENDER's documentation. [] Additions or exceptions (if any) to the PAs/ROUGH PLANER TENDER's note and plan are summarized below: [] (CHENTE GAUTHIER,RENU Ritchie) Critical Care Note Critical Care Note Critical Care Time: non-applicable (FRANCESCA VERDIN)
[2017-03-31] MEDS ORDERED: JEVITY 1.5 CAL237 ML G TUBE (09:24)
--- NOTE | 2017-03-31 09:25 | NUR ---
PT BIBA FROM [facility] FOR LOW 02 SATS. PT ON 1LNC BASELINE AND WAS FOUND TO BE IN THE 80'S. PT O2 UP TO 3LNC AND SATS 94%. PT SUCTIONED UPON ARRIVAL TO ED. PT NON VERBAL AT BASELINE. LUNGS SOUNDS ARE WET B/L. FRANCI LARSEN AT BEDSIDE. RT CALLED FOR NEB TX
[2017-03-31] MEDS ORDERED: FYCOMPA6 MG G TUBE (09:36)
[2017-03-31] MEDS ORDERED: GLYCOPYRROLATE1 M1 PO (09:37)
[2017-03-31] MEDS ORDERED: IPRATROPIU0.2 MG/1 M INH/SOL (09:39)
[2017-03-31] MEDS ORDERED: TYLENOL325 M1 PO (09:43)
--- NOTE | 2017-03-31 09:57 | RADIOLOGY REPORT ---
EXAMINATION: XR PORTABLE CHEST CLINICAL INFORMATION: Cough and dyspnea. COMPARISON: Chest x-ray 03/21/2017. TECHNIQUE: Portable supine frontal view of the chest was obtained. FINDINGS: The study redemonstrates the chronic dextroscoliosis. There are incompletely visualized vertical metallic rods and cerclage wires in the mid and lower thoracic spine. There is marked crowding of the posterior ribs on the left. The right lung is poorly expanded compared to the left. There is new opacity at the right base, which may be consistent with developing consolidation or atelectasis. The cardiac silhouette is normal in size. The left chest wall generator with cephalad extending leads are unchanged. There are degenerative changes at the left shoulder joint. IMPRESSION: 1. There is new opacity at the right base which may be consistent with atelectasis or developing consolidation.
[2017-03-31 10:18] LABS: ABSOLUTE BASOPHIL COUNT 0 /CUMM (0.0-0.2); ABSOLUTE EOSINOPHIL COUNT 0.1 /CUMM (0.0-0.7); ABSOLUTE GRANULOCYTE CT 8.8 /CUMM (1.4-6.5); ABSOLUTE LYMPH COUNT 2.8 /CUMM (1.2-3.4); ABSOLUTE MONOCYTE COUNT 1.2 /CUMM (0.10-0.60); BASOPHIL % 0.3 % (0.0-2.0); EOSINOPHIL % 0.4 % (0-5); GRANULOCYTE % 68.4 % (42.2-75.2); HEMATOCRIT 38.8 % (42-52); MEAN CORPUSCULAR HGB 29.9 PG (27.0-31.0); MEAN CORPUSCULAR HGB CONC 33.4 G/DL (33.0-37.0); MEAN CORPUSCULAR VOLUME 89.6 FL (80.0-94.0); MEAN PLATELET VOLUME 8.7 FL (7.4-10.4); PLATELET COUNT 253 /CUMM (130-400); RBC DISTRIBUTION WIDTH 13.8 % (11.5-14.5); RED BLOOD CELL CT 4.33 /CUMM (4.70-6.10); WHITE BLOOD CELL COUNT 12.8 /CUMM (4.8-10.8)
--- NOTE | 2017-03-31 10:39 | NUR ---
CONDITIONER TUMBLER SOFI AT BEDSIDE FOR SECOND BLOOD CULTURE DRAW
--- NOTE | 2017-03-31 10:51 | NUR ---
CRITICAL TEST RESULTS [id number] SHIRLEY BRUNO 27 M TESTS AND RESULTS: LACTIC ACID 2.0 Results received and read back by: CHRISTINE ESPINAL Results received date and time: 03/31/17 1051 The following provider was notified of the results, and read the results back: FRANCI LARSEN Notified date and time: 03/31/17 at 1050
--- NOTE | 2017-03-31 11:00 | NUR ---
PT INCONTINENT OF URINE. RADHA CARE PROVIDED. BUTTOCKS APPEARS REDDENED, NO OPEN SORES NOTED. BARRIER CREAM APPLIED
--- NOTE | 2017-03-31 11:25 | History & Physical ---
CAMERON ZACARIAS 03/31/17 1123: General Information and HPI MD Statement: I have seen and personally examined SHIRLEY NGUYNỄ and documented this H& P. The patient is a 27 year old M who presented with a patient stated chief complaint of [low oxygen saturations]. Source of Information: old records Exam Limitations: clinical condition History of Present Illness: 27-year-old male with a past medical history of severe learning disorder secondary to cerebral palsy, seizure, scoliosis, on G-tube feeding, history of aspiration pneumonia who lives in a [facility] was brought in after he was found to have low oxygen saturations. History is much limited and is obatined form the ER as patient is non-verbal, and I was unbale to reach the [facility]. Reportedly, Mr. Nguyễn was seen in the ER 10 days prior to this admission and was discharged home after having being suctioned and having brought up a mucus pulg, with subsequent improvment in his oxygen saturations, after [facility] he was discharged back. Reporetedly his oxygen saturations dropped to 88% and he was sent o [facility] ER for joellen ley. Spoke with his father, who states that there is apparently no hx of efver, chills. Allergies/Medications Allergies: Coded Allergies: NO KNOWN ALLERGIES (10/27/16) Compliance With Home Meds: GOOD Past History Travel History Traveled to [place] past 21 day No Medical History Neurological: PROFOUND INTELLECTUAL D/O CEREBRAL PALSY SEIZURE DISORDER EENT: allergies, DYSPHAGIA RECURRENT ASPIRATIONS Cardiovascular: NONE Respiratory: bronchitis Gastrointestinal: G-TUBE Hepatic: NONE Renal: NONE Musculoskeletal: SCOLIOSIS Psychiatric: NONE Endocrine: NONE Blood Disorders: NONE Cancer(s): NONE SALESFORCE BUSINESS ANALYST/Reproductive: NONE History of MRSA: No History of VRE: No History of CDIFF: No Surgical History Surgical History: RHODES MOHAN status post vagal nerve stimulator Past Family/Social History Psychosocial History ETOH Use: 6 Illicit Drug Use: UTD Functional Ability ADLs Needs Assist: dressing, eating, toileting, bathing. Ambulation: non-ambulatory IADLs Needs Assist: shopping, housework, finances, food prep, telephone, transportation, medication admin. Review of Systems Review of Systems Constitutional: Reports: see HPI. Cardiovascular: Reports: see HPI. Respiratory: Reports: see HPI. GI: Reports: see HPI. Genitourinary: Reports: see HPI. Musculoskeletal: Reports: see HPI. Neurological/Psychological: Reports: see HPI. Hematologic/Endocrine: Reports: see HPI. Exam & Diagnostic Data Last 24 Hrs of Vital Signs/I&O Vital Signs Date Time Temp Pulse Resp B/P B/P Pulse O2 O2 Flow FiO2 Mean Ox Delivery Rate 03/31 1015 96.2 104 20 126/72 94 Nasal 3.0L Cannula Physical Exam General Appearance drowsy, non-verbal HEENT PERRLA, dry mucous membranes Neck Supple, No JVD, No LAD Cardiovascular Normal S1, Normal S2 Lungs bilateral ronchi Abdomen Normal Bowel Sounds, Soft, No Tenderness, G tube in place, wound site not infected. Neurological uanble to evaluate; patient non -verbal and not following commands. Extremities No Edema, contracted feet Vascular Normal Pulses, Pulses Symmetrical Last 24 Hrs of Labs/Lamont: Laboratory Tests 03/31/17 1010: Anion Gap 12, Estimated GFR > 60, BUN/Creatinine Ratio 32.5 H, Glucose 104 H, Lactic Acid 2.0, Calcium 9.4, Total Bilirubin 0.3, AST 16 L, ALT 32, Alkaline Phosphatase 144 H, Total Protein 7.4, Albumin 4.3, Globulin 3.1, Albumin/ Globulin Ratio 1.4, CBC w Diff NO MAN DIFF REQ, RBC 4.33 L, MCV 89.6, MCH 29.9, RDW 13.8, MPV 8.7, Gran % 68.4, Lymphocytes % 21.6, Monocytes % 9.3, Eosinophils % 0.4, Basophils % 0.3, Absolute Granulocytes 8.8 H, Absolute Lymphocytes 2.8, Absolute Monocytes 1.2 H, Absolute Eosinophils 0.1, Absolute Basophils 0, PUBS MCHC 33.4 Microbiology 03/31 1043 BLOOD: Blood Culture - RECD 03/31 1010 BLOOD: Blood Culture - RECD Diagnostic Data CXR Results FINDINGS: The study redemonstrates the chronic dextroscoliosis. There are incompletely visualized vertical metallic rods and cerclage wires in the mid and lower thoracic spine. There is marked crowding of the posterior ribs on the left. The right lung is poorly expanded compared to the left. There is new opacity at the right base, which may be consistent with developing consolidation or atelectasis. The cardiac silhouette is normal in size. The left chest wall generator with cephalad extending leads are unchanged. There are degenerative changes at the left shoulder joint. IMPRESSION: 1. There is new opacity at the right base which may be consistent with atelectasis or developing consolidation. Assessment/Plan Assessment: 27-year-old male with a past medical history of severe learning disorder secondary to cerebral palsy, seizure, scoliosis, on G-tube feeding, history of aspiration pneumonia who lives in a [facility] was brought in after he was found to have low oxygen saturations. He was seen in the ER 10 days prior to this admission and was discharged home. Vitals at the time of admission blood pressure 126/72, respiratory rate 20, tachycardic to 10 afebrile, saturating 94% on 3 L of oxygen via nasal cannula. Labs pertinent for leukocytosis with a white blood cell count of 12,800, H&H of 12.9/30.8 and normal MCV of 89.6. Serum chemistries reveal a sodium of 138, potassium of 3.8, elevated bicarbonate of 32, anion gap of 12 with a BUN of 13 and a creatinine of 0.4. Lactic acid was 2.0. LFTs revealed total bili of 0.3, AST/ALT of 16/32, alkaline phosphatase elevated at 144. Chest x-ray shows new opacity at the right base which may be consistent with atelectasis or developing consolidation. In the ER he received Unasyn 3000 mg IV 1, bolus of normal saline thousand milliliters 1, treatment with Atrovent and Proventil. Assesment and Plan: Admit to [facility] Medicine #Acut hypoxic respiratory failure Most likely 2/2 aspiration pneumonia. Start him onUnasyn 3000mg IV Q6 F/U LRC, BCX2, urinary antigen for strep and legionella. Maintain on aspiration precautions. Restart tube feeds Jevity 1.5 (237cc) via G tube 5 times daily, and decrease residuals, together with 200cc of water 6 times daily via G-tube every 4 hours round the clock after each tube feed (1185ml - total) If continues to remain afebrile, will trasnition to oral antibiotics. Vitals q shift. Monitor rsidulas > 200mls, four hours after bolus. #Hx of seizure disorder Continue home medications Mysoline 250mg every morning, and 500mg at bedtime with Rufinamide 1600mg via G-tube BID and Fycoma 6mg once daily via G tube. Maintain on aspiration and seizure precautions. #Dysphagia He is on Glycopyrate tabs, will switch him to 100mcg daily SC for secretions. - DVT prophylaxis - On heparin 5000IU TID SC - Diet - On tube feeds - Code Status - Full Code. As Ranked By This Provider Problem List: 1. Aspiration pneumonia Core Measures/Miscellaneous Acute Coronary Syndrome ACS Diagnosis: No Cerebrovascular Accident CVA/TIA Diagnosis: No Congestive Heart Failure CHF Diagnosis: No VTE (View Protocol) VTE Risk Factors: Age > 40 [facility] d/t: No contraindications No VTE Pharm Prophylaxis d/t: No contraindications VTE Diagnosis: No VTE Type: NONE VTE Confirmed by (Test): NONE Sepsis (View Protocol) Severe Sepsis Present: No Septic Shock Septic Shock Present: No Miscellaneous Documentation Attending Case Discussed With: ENOCH PORTER M.D Primary Care Physician: NORMA ALLISON MD Patient sees these Specialists Unknown Level of Patient Care: General Medicine Resident Review Statement Resident Statement: ADMITTED BY RESIDENT ENOCH PORTER MD 03/31/17 1351: General Information and HPI Allergies/Medications Home Med list Acetaminophen (Tylenol) 325 MG TABLET 2 TAB PO Q4 HRS NEEDED PRN MILD PAIN/ FEVER (Reported) Albuterol Sulfate 2.5 MG/3 ML (0.083 %) VIAL.NEB 1 Vial INH/LENNY Q4P PRN WHEEZING (Reported) Bacitracin 500 UNIT/GRAM OINT...G. 1 KTAT TOP 4 TIMES/DAY AFFECTED AREAS ( Reported) apply to affected area(s) Clonazepam (Klonopin) 1 MG TABLET 1 TAB PO DAILY ANXIETY (Reported) Docusate Sodium (Stool Softener) 50 MG/5 ML LIQUID 10 ML G TUBE DAILY STOOL SOFTENER (Reported) Erythromycin Base/Ethanol (Erythromycin 2% Solution) 2 % SOLUTION 1 KATT TOP BID RASH (Reported) Fluticasone Propionate (Flonase Allergy Relief) 50 MCG/ACTUATION SPRAY.SUSP 1 SPRAY SHEYLA DAILY ALLERGIES (Reported) Glycopyrrolate 1 MG TABLET 1 TAB PO Q8 SECRETION (Reported) Guaifenesin/Dextromethorphan (Adult Robitussin Peak Cold Liq) 100 MG-10 MG/5 ML LIQUID 10 ML G TUBE TID PRN COUGH TAKE FOR 7 DAYS Ipratropium [place] 0.2 MG/ML (0.02 %) SOLUTION 1 Vial INH/LENNY Q6 BREATHING PROBLEMS (Reported) Lactose-Reduced Food/Fiber (Jevity 1.5 Sam Liquid) 0.06 GRAM-1.5 KCAL/ML LIQUID 1 CAN G TUBE 5 TIMES A DAY SUPPLEMENT (Reported) Loratadine (Claritin) 5 MG/5 ML SOLUTION 10 ML G TUBE DAILY ALLERGIES ( Reported) Lorazepam (Ativan) 2 MG TABLET 1 TAB PO AT BEDTIME ANXIETY (Reported) Lorazepam (Lorazepam Intensol) 2 MG/ML ORAL.CONC 1 ML SL DAILY PRN AFTER SEIZURE (Reported) Nystatin 1 BILLION UNIT POWDER.EA. 1 KATT TOP BID PRN AFFECTED AREAS (Reported ) Perampanel (Fycompa) 6 MG TABLET 1 TAB G TUBE DAILY SEIZURES (Reported) Polyethylene Glycol 3350 (Miralax) 17 GRAM POWD.PACK 1 PAC G TUBE DAILY CONSTIPATION (Reported) dissolve in water Primidone (Mysoline) 250 MG TABLET 1 TAB G TUBE DAILY SEIZURES (Reported) Primidone (Mysoline) 250 MG TABLET 2 TAB G TUBE QPM SEIZURES (Reported) Rufinamide (Banzel) 400 MG TABLET 4 TAB G TUBE BID SEIZURES (Reported) Sodium Chloride For Inhalation (Sodium Chloride) 0.9 % VIAL.NEB 1 VIAL PO Q6 BREATHING PROBLEMS (Reported) Terbinafine HCl (Lamisil At) 1 % CREAM..G. 1 KATT TOP AT BEDTIME NAILS ( Reported) Zinc Oxide (Diaper Rash) 10 % OINT...G. 1 KATT TOP DAILY PRN AFFECTED AREAS ( Reported) Attending MD Review Statement Attending Statement Attending MD Statement: examined this patient, discuss w/resident/PA/CAMPGROUND HAND, agreed w/resident/PA/CAMPGROUND HAND, discussed with family, reviewed EMR data (avail), discussed with nursing, amended to note Attending Assessment/Plan: Patient seen and examined. I have reviewed and agree with the history and physical as well as assessment and plan as documented by the resident Above. The patient is a 27-year-old gentleman with a history of cerebral palsy. At baseline he is aphasic and bedbound. He has had several admissions in the past for aspiration pneumonia. He was emergency room about 10 days ago from the [facility] on account of hypoxia. Chest x-ray showed no acute findings at that time. Was reported to have coughed up a mucous plug, he improved and was discharged back to the facility. He did not require antibiotics at the time. He was brought back to the emergency room today from the facility on account of increasing O2 demand no other significant history was obtained. In the emergency room he was afebrile and hemodynamically stable. He however did have leukocytosis on labs although with no left shift and chest x-ray now shows a new right-sided basal opacity. In the EDstarted on IV Unasyn for presumptive diagnosis of aspiration pneumonia and referred to the inpatient medical service for further management. Problems: 1. Aspiration pneumonia 2. Cerebral palsy 3. Dysphagia secondary above; patient undergoes feeding via G-tube. 4. Seizure disorder Plan: -Admit to the inpatient general medical service. -Hydrate antibody therapy with Unasyn -Maintain aspiration precautions at all times. -Continue tube feeding monitor residuals. -Continue antiepileptic regimen. -Repeat CBC in a.m. Anticipate discharge if patient remains afebrile for 48 hours and white cell count is trending downwards.
[2017-03-31] MEDS ORDERED: ATIVAN2 MG PO (12:01)
--- NOTE | 2017-03-31 12:02 | NUR ---
PT STRAIGHT CATHED FOR URINE SPECIMEN. 500 CC CLOUDY YELLOW URINE RETURN. SPECIMEN SENT TO LAB
[2017-03-31] MEDS ORDERED: LAMISIL AT30 GM TOP (12:03)
--- NOTE | 2017-03-31 13:43 | NUR ---
PT TO ROOM 238 BED 1
--- NOTE | 2017-03-31 13:51 | Admission Certification ---
Admission Certification Certification Statement - As attending physician, I certify that at the time of - admission, based on clinical presentation, severity of - symptoms, need for further diagnostic testing and - therapeutic interventions, and risk of adverse outcomes - without in-hospital treatment, in my clinical assessment, - this patient requires an acute hospital stay for a minimum - of two nights or longer. I have also considered psychsocial - factors such as support system, advanced age, financial - issues, cognitive issues, and failed out-patient treatments, - past re-admission history, safety of patient, and lack of - compliance as applicable. Specific rationale supporting this admission is: IV antibiotics for treatment of his pneumonia.
--- NOTE | 2017-03-31 13:53 | NUR ---
PT IS CURRENTLY SLEEPING. RR EVEN AND UNLABORED. O2 SATS 100% ON 3LNC.
--- NOTE | 2017-03-31 13:57 | NUR ---
ORDER FOR NG TUBE D/C'D BY CAMERON GAUTHIER
--- NOTE | 2017-03-31 14:18 | NUR ---
ATTEMPT TO CALL REPORT X 2, ROOM ISN'T READY
--- NOTE | 2017-03-31 15:01 | NUR ---
MEDS ORDERED FROM PHARMACY
--- NOTE | 2017-03-31 15:36 | NUR ---
UNABLE TO GIVE REPORT AT THIS TIME, PER WIRELESS OPERATOR NURSES ARE STILL IN REPORT.
--- NOTE | 2017-03-31 16:20 | NUR ---
PER STAFF ON 2NA NURSING LOGGING TRACTOR OPERATOR SWAMP HAS BEEN PAGED BECAUSE BED 238-01 IS NO LONGER OPEN. REGISTRAR MUSEUM OF ED ALSO NOTIFIED AT THIS TIME.
--- NOTE | 2017-03-31 16:50 | NUR ---
PT HAS NEW BED 219-01, PER BED BOARD AT THIS TIME BED IS DIRTY.
--- NOTE | 2017-03-31 17:09 | NUR ---
ATTEMPTED TO GIVE REPORT TO RN MERCEDES, ON HOLD FOR SEVERAL MINUTES, WILL CALL BACK.
--- NOTE | 2017-03-31 17:32 | NUR ---
REPORT GIVEN TO TONY LONG. PT MEDICATED PER EMAR. TRANSPORT BOOKED AT THIS TIME.
--- NOTE | 2017-03-31 17:49 | NUR ---
PER WOOL BROKER PT G TUBE FEEDING IS JEVITY 1.5 WITH 200ML OF H20. PT IS SCHEDULED FOR 1600, 1999 AND 2400.
[2017-03-31 18:35] VITALS: BP 124/88
--- NOTE | 2017-03-31 20:25 | RADIOLOGY REPORT ---
EXAMINATION: XR PORTABLE CHEST CLINICAL INFORMATION: Increased secretions. COMPARISON: 03/31/2017. TECHNIQUE: Portable frontal view of the chest was obtained. FINDINGS: Chest a stable in appearance without evidence of significant change with elevated right hemidiaphragm and discoid atelectasis versus scarring at the right lung base. No new infiltrate is identified. Central congestion and bronchial wall thickening appears somewhat improved. There are stable appearing postsurgical changes with a stimulator device of some sort also noted on the left. IMPRESSION: Fairly stable appearing chest x-ray without evidence of an infiltrate.
--- NOTE | 2017-03-31 21:04 | NUR ---
NURSING NOTE: PATIENT WAS BEING SUCTIONED ORALLY BY RESP THERAPIST AND RECIEVED MOD AMT OF MARY ELLEN BLOOD. CHEMICAL ETCH OPERATOR MITESH NOTIFIED AND PRESENT AT BEDSIDE. CHEST X-RAY ORDERTED AND DONE. RESULTES PENDING.
[2017-03-31 22:25] VITALS: BP 120/86
[2017-04-01 06:19] VITALS: BP 126/82
--- NOTE | 2017-04-01 07:20 | PN- Housestaff ---
See Addendum Subjective Follow-up For: acute hypoxic respiratory failure 2/2 aspiration PNA Cerebral palsy Chronic dysphagia s/p G tube Subjective: Patient seen and examiend at bedside. Shiva was ronchorus last night. He is non-verbal at baseline, and so could not obatien any review of systems. He remnains A/F. Review of Systems Constitutional: Reports: see HPI. Cardiovascular: Reports: see HPI. Respiratory: Reports: see HPI. Gastrointestinal: Reports: see HPI. Genitourinary: Reports: see HPI. Musculoskeletal: Reports: see HPI. Neurological/Psychological: Reports: see HPI. Objective Last 24 Hrs of Vital Signs/I&O Vital Signs Date Time Temp Pulse Resp B/P B/P Pulse O2 O2 Flow FiO2 Mean Ox Delivery Rate 04/01 0619 98.0 99 20 126/82 97 04/01 0030 98 Nasal 2.0L Cannula 04/01 0000 98 Nasal 2.0L Cannula 03/31 2225 98.2 84 18 120/86 100 Nasal 3.0L Cannula 03/31 2000 Nasal 2.0L Cannula 03/31 1835 97.8 86 16 124/88 100 Nasal 3.0L Cannula 03/31 1752 99 Nasal 2.0L Cannula 03/31 1703 97.5 85 20 104/56 96 Room Air Room Air 03/31 1618 97.8 67 18 101/58 96 Room Air Room Air 03/31 1410 97.0 85 20 108/61 100 Nasal 3.0L Cannula 03/31 1309 97.0 97 20 120/70 100 Nasal 3.0L Cannula 03/31 1117 97.4 79 20 130/68 97 Nasal 3.0L Cannula 03/31 1015 96.2 104 20 126/72 94 Nasal 3.0L Cannula 03/31 0940 96 Nasal 3.0L Cannula Intake & Output 04/01 0800 04/01 0000 03/31 1600 Intake Total 952 694 2827 Output Total 500 Balance 600 724 4599 Intake, IV 090 783 2406 Number 2 Bowel Movements Output, Urine 500 Patient 150 lb Weight Weight Reported by Patient Measurement Method Physical Exam General Appearance: drowsy, but arousable, non-verbal. HEENT: Atraumatic, PERRLA, Mucous Membr. moist/pink Neck: Supple, No JVD, No LAD Cardiovascular: Normal S1, Normal S2, No Murmurs Lungs: bilateral corase ronchi anteriorly, much better tahn yesterday Abdomen: Normal Bowel Sounds, Soft, G tuibe in place Neurological: unable to evaluate Extremities: contarcted extermities; trace edema Vascular: Normal Pulses, Pulses Symmetrical Current Medications: Current Medications Sig/Jerrod Start time Last Medication Dose Route Stop Time Status Admin Acetaminophen 650 MG Q6P PRN 03/31 1145 AC PO Acetaminophen/ 1 TAB Q6P PRN 03/31 1145 AC Hydrocodone Bitart PO Albuterol Sulfate 3 ML EVERY 4 HRS/AWAKE 04/01 0800 AC INH Albuterol Sulfate 3 ML Q4P PRN 03/31 1245 AC 03/31 INH 2031 Albuterol Sulfate 3 ML ONCE ONE 03/31 0930 DC 03/31 INH 03/31 0931 0935 Ampicillin Sodium/ 0 .STK-MED ONE 03/31 1740 DC Sulbactam Sodium .ROUTE Ampicillin Sodium/ 3,000 MG Q6H 03/31 1645 AC 04/01 Sulbactam Sodium IV 0451 Sodium Chloride 100 ML Ampicillin Sodium/ 0 .STK-MED ONE 03/31 1032 DC Sulbactam Sodium .ROUTE Ampicillin Sodium/ 3,000 MG ONCE ONE 03/31 1015 DC 03/31 Sulbactam Sodium IV 03/31 1044 1047 Sodium Chloride 100 ML Azithromycin 500 MG ONCE ONE 03/31 1215 CAN Sodium Chloride 250 ML IV 03/31 1314 Ceftriaxone Sodium 1,000 MG ONCE ONE 03/31 1215 CAN IV 03/31 1216 Clonazepam 1 MG DAILY 04/01 1000 AC PO 04/08 0959 Docusate Sodium 100 MG DAILY 04/01 1000 AC PO Erythromycin 1 KATT BID 03/31 2200 AC 03/31 OPH 2308 Fluticasone 2 SPRAY DAILY 04/01 1000 AC Propionate SHEYLA Glycopyrrolate 100 MCG DAILY 04/01 1000 AC SC Glycopyrrolate 1 MCG DAILY 03/31 1446 DC SC Guaifenesin 10 ML Q6P PRN 03/31 1245 AC PO Heparin Sodium 0 .STK-MED ONE 03/31 1408 DC (Porcine) .ROUTE Heparin Sodium 5,000 UNIT Q8 03/31 1400 AC 04/01 (Porcine) SC 0504 Ipratropium [place] 2.5 ML EVERY 4 HRS/AWAKE 04/01 0800 AC INH Ipratropium [place] 2.5 ML Q6 03/31 1800 AC 03/31 INH 2031 Ipratropium [place] 2.5 ML ONCE ONE 03/31 0930 DC 03/31 INH 03/31 0931 0935 Loratadine 10 MG DAILY 04/01 1000 AC PO Lorazepam 2 MG AT BEDTIME 03/31 2200 AC 03/31 PO 2318 Morphine Sulfate 2 MG Q4P PRN 03/31 1145 AC IV Mupirocin 1 KATT Q6H 03/31 2300 AC 03/31 TOP 2343 Mupirocin 1 KATT Q6 03/31 1800 DC TOP Non-Formulary 0 SEE ADMIN CRITERIA 03/31 1245 UNVr Medication ANY Nystatin 1 KATT BID PRN 03/31 1245 AC TOP Polyethylene Glycol 17 GM DAILY 04/01 1000 AC PO Primidone 250 MG DAILY 04/01 1000 AC PO Primidone 500 MG QPM 03/31 2200 AC 03/31 PO 2310 Rufinamide 1,600 MG BID 03/31 2200 AC 03/31 PO 2310 Sodium Chloride 1,000 ML Q13H 03/31 1300 AC 04/01 IV 04/01 1459 0452 Sodium Chloride 2 SPRAY Q4P PRN 03/31 1245 AC SHEYLA Sodium Chloride 1,000 ML BOLUS ONE 03/31 1100 DC 03/31 IV 03/31 1159 1053 Sodium Chloride 1,000 ML BOLUS ONE 03/31 1100 DC 03/31 IV 03/31 1159 1141 Terbinafine HCl 1 KATT AT BEDTIME 03/31 2200 AC TOP Zinc Oxide 1 KATT DAILY 04/01 1000 AC TOP Last 24 Hrs of Lab/Lamont Results Last 24 Hrs of Labs/Mics: Laboratory Tests 03/31/17 1251: Lactic Acid 1.2 03/31/17 1200: Urine Color STRAW, Urine Clarity CLEAR, Urine pH 7.5, Ur Specific [place] 1.015, Urine Protein NEG, Urine Ketones NEG, Urine Nitrite NEG, Urine Bilirubin NEG, Urine Urobilinogen 0.2, Ur Leukocyte Esterase NEG, Ur Microscopic EXAM NOT REQUIRED, Urine Hemoglobin NEG, Urine Glucose NEG 03/31/17 1010: Anion Gap 12, Estimated GFR > 60, BUN/Creatinine Ratio 32.5 H, Glucose 104 H, Hemoglobin A1c 5.1, Lactic Acid 2.0, Calcium 9.4, Total Bilirubin 0.3, AST 16 L , ALT 32, Alkaline Phosphatase 144 H, Total Protein 7.4, Albumin 4.3, Globulin 3.1, Albumin/Globulin Ratio 1.4, CBC w Diff NO MAN DIFF REQ, RBC 4.33 L, MCV 89.6, MCH 29.9, RDW 13.8, MPV 8.7, Gran % 68.4, Lymphocytes % 21.6, Monocytes % 9.3, Eosinophils % 0.4, Basophils % 0.3, Absolute Granulocytes 8.8 H, Absolute Lymphocytes 2.8, Absolute Monocytes 1.2 H, Absolute Eosinophils 0.1, Absolute Basophils 0, PUBS MCHC 33.4 Microbiology 03/31 124 URINE ROUT: Legionella Antigen - COLB 03/31 124 URINE ROUT: Streptococcus pneumoniae Antigen (M - COLB 03/31 1043 BLOOD: Blood Culture - RECD 03/31 1010 BLOOD: Blood Culture - RECD Assessment/Plan Assessment: 27-year-old male with a past medical history of severe learning disorder secondary to cerebral palsy, seizure, scoliosis, on G-tube feeding, history of aspiration pneumonia [facility] was brought in after he was found to have low oxygen saturations. He was seen in the ER 10 days prior to this admission and was discharged home. Vitals at the time of admission blood pressure 126/72, respiratory rate 20, tachycardic to 10 afebrile, saturating 94% on 3 L of oxygen via nasal cannula. Labs pertinent for leukocytosis with a white blood cell count of 12,800, H&H of 12.9/30.8 and normal MCV of 89.6. Serum chemistries reveal a sodium of 138, potassium of 3.8, elevated bicarbonate of 32, anion gap of 12 with a BUN of 13 and a creatinine of 0.4. Lactic acid was 2.0. LFTs revealed total bili of 0.3, AST/ALT of 16/32, alkaline phosphatase elevated at 144. Chest x-ray shows new opacity at the right base which may be consistent with atelectasis or developing consolidation. In the ER he received Unasyn 3000 mg IV 1, bolus of normal saline thousand milliliters 1, treatment with Atrovent and Proventil. Assesment and Plan: Admit to [facility] #Acut hypoxic respiratory failure Most likely 2/2 aspiration pneumonia. Contineu Unasyn 3000mg IV Q6 F/U LRC, BCX2, urinary antigen for strep and legionella. Maintain on aspiration precautions. Continue tube feeds Jevity 1.5 (237cc) via G tube 5 times daily, and decrease residuals, together with 200cc of water 6 times daily via G-tube every 4 hours round the clock after each tube feed (1185ml - total). Will palce nutrition conult to evaluate for continuous tube feeds If continues to remain afebrile, will trasnition to oral antibiotics. Vitals q shift. Monitor rsidulas > 200mls, four hours after bolus. #Hx of seizure disorder Continue home medications Mysoline 250mg every morning, and 500mg at bedtime with Rufinamide 1600mg via G-tube BID and Fycoma 6mg once daily via G tube. Maintain on aspiration and seizure precautions. #Dysphagia He is on Glycopyrate tabs, will switch him to 100mcg daily SC for secretions. Will get nutriotion conult to evaluate fr continuous tube feeds. - DVT prophylaxis - On heparin 5000IU TID SC - Diet - On tube feeds - Code Status - Full Code. Problem List: 1. Aspiration pneumonia 2. Cerebral palsy 3. Seizure Pain Ratin Pain Location: unable to dteremine Pain Goal: unable to determine Pain Plan: tyelnol Tomorrow's Labs & Rationales: cbc - to monitor WBC
[2017-04-01 08:16] LABS: ABSOLUTE BASOPHIL COUNT 0 /CUMM (0.0-0.2); ABSOLUTE EOSINOPHIL COUNT 0.2 /CUMM (0.0-0.7); ABSOLUTE GRANULOCYTE CT 6.2 /CUMM (1.4-6.5); ABSOLUTE MONOCYTE COUNT 0.8 /CUMM (0.10-0.60); BASOPHIL % 0.2 % (0.0-2.0); EOSINOPHIL % 1.6 % (0-5); GRANULOCYTE % 67.5 % (42.2-75.2); HEMATOCRIT 36.3 % (42-52); MEAN CORPUSCULAR HGB 30.1 PG (27.0-31.0); MEAN CORPUSCULAR HGB CONC 33.7 G/DL (33.0-37.0); MEAN CORPUSCULAR VOLUME 89.6 FL (80.0-94.0); PLATELET COUNT 207 /CUMM (130-400); RBC DISTRIBUTION WIDTH 13.8 % (11.5-14.5); RED BLOOD CELL CT 4.06 /CUMM (4.70-6.10); WHITE BLOOD CELL COUNT 9.2 /CUMM (4.8-10.8)
[2017-04-01 15:09] VITALS: BP 140/80
[2017-04-01 23:10] VITALS: BP 132/88
[2017-04-02 07:01] VITALS: BP 98/56
[2017-04-02 08:37] LABS: ABSOLUTE BASOPHIL COUNT 0 /CUMM (0.0-0.2); ABSOLUTE EOSINOPHIL COUNT 0 /CUMM (0.0-0.7); ABSOLUTE GRANULOCYTE CT 9.7 /CUMM (1.4-6.5); ABSOLUTE LYMPH COUNT 2.3 /CUMM (1.2-3.4); ABSOLUTE MONOCYTE COUNT 1.3 /CUMM (0.10-0.60); BASOPHIL % 0.3 % (0.0-2.0); EOSINOPHIL % 0 % (0-5); GRANULOCYTE % 73.1 % (42.2-75.2); HEMATOCRIT 39.3 % (42-52); MEAN CORPUSCULAR HGB 29.9 PG (27.0-31.0); MEAN CORPUSCULAR HGB CONC 33.7 G/DL (33.0-37.0); MEAN CORPUSCULAR VOLUME 88.8 FL (80.0-94.0); MEAN PLATELET VOLUME 9.7 FL (7.4-10.4); PLATELET COUNT 250 /CUMM (130-400); RBC DISTRIBUTION WIDTH 13.5 % (11.5-14.5); RED BLOOD CELL CT 4.42 /CUMM (4.70-6.10); WHITE BLOOD CELL COUNT 13.3 /CUMM (4.8-10.8)
--- NOTE | 2017-04-02 08:41 | PN- Housestaff ---
JOÃO CHÁVEZ 04/02/17 0841: Subjective Follow-up For: Acute hypoxic respiratory failure Aspiration pneumonia Cerebral palsy Chronic dysphagia status post G-tube placement Subjective: Interval history: No acute events overnight. Information obtained indicates that he has some clear white secretions with noticeable improvement over the past 24 hours. Reports of aspiration or dysfunction from the feeding tube. This morning Mynor is laying in bed in no acute distress, easily arousable , moving all limbs spontaneously. Review of Systems Constitutional: Reports: see HPI. EENTM: Reports: see HPI. Cardiovascular: Reports: see HPI. Respiratory: Reports: see HPI. Gastrointestinal: Reports: see HPI. Objective Last 24 Hrs of Vital Signs/I&O Vital Signs Date Time Temp Pulse Resp B/P B/P Pulse O2 O2 Flow FiO2 Mean Ox Delivery Rate 04/02 0701 100.4 107 20 98/56 99 Nasal Cannula 04/02 0000 Nasal 2.0L Cannula 04/01 2310 99.2 120 20 132/88 98 Nasal 3.0L Cannula 04/01 1935 98 Nasal 2.0L Cannula 04/01 1711 Nasal 2.0L Cannula 04/01 1509 98.2 111 20 140/80 97 Nasal 2.0L Cannula Intake & Output 04/02 1600 04/02 0800 04/02 0000 Intake Total 894 1022 Output Total Balance 894 1022 Intake, IV 525 Intake, Oral 0 0 Intake, Tube 494 237 Feeding Intake, Tube 400 260 Irrigant Number 2 0 Bowel Movements Physical Exam General Appearance: patient is easily arousable and in no acute distress moving all limbs spontaneously with intermittent twitching. Skin: G-tube secured in place with no evidence of dehiscence HEENT: Mucous Membr. moist/pink, clear saliva present on the side of his face (. ) Cardiovascular: Regular Rate, Normal S1, Normal S2 Lungs: bilateral rhonchi with inspiration. No wheezing or crackles present. diminished breath sounds in the basilar regions Abdomen: G-tube in place, secured with no evidence of erythema or dehiscence. Abdomen is slightly distended with diminished bowel sounds Neurological: spontaneous movement of all 4 extremities, contractures in the context of long-standing cerebral palsy Extremities: No Edema, Normal Pulses Current Medications: Current Medications Sig/Jerrod Start time Last Medication Dose Route Stop Time Status Admin Acetaminophen 650 MG Q6P PRN 03/31 1145 AC PO Acetaminophen/ 1 TAB Q6P PRN 03/31 1145 AC Hydrocodone Bitart PO Albuterol Sulfate 3 ML EVERY 4 HRS/AWAKE 04/01 0800 AC 04/01 INH 1934 Albuterol Sulfate 3 ML Q4P PRN 03/31 1245 AC 03/31 INH 2031 Ampicillin Sodium/ 3,000 MG Q6H 03/31 1645 DC 04/01 Sulbactam Sodium IV 1241 Sodium Chloride 100 ML Clonazepam 1 MG DAILY 04/01 1000 AC 04/01 PO 04/08 0959 1300 Docusate Sodium 100 MG DAILY 04/01 1000 DC PO Erythromycin 1 KATT BID 03/31 2200 AC 04/01 OPH 2327 Fluticasone 2 SPRAY DAILY 04/01 1000 AC 04/01 Propionate SHEYLA 1254 Glycopyrrolate 100 MCG DAILY 04/01 1000 AC 04/01 SC 1255 Guaifenesin 10 ML Q6P PRN 03/31 1245 AC PO Heparin Sodium 5,000 UNIT Q8 03/31 1400 AC 04/02 (Porcine) SC 0420 Ipratropium [place] 2.5 ML EVERY 4 HRS/AWAKE 04/01 0800 AC 04/01 INH 1933 Ipratropium [place] 2.5 ML Q6 03/31 1800 AC 03/31 INH 2031 Loratadine 10 MG DAILY 04/01 1000 AC 04/01 PO 1240 Lorazepam 2 MG AT BEDTIME 03/31 2200 AC 04/01 PO 2327 Morphine Sulfate 2 MG Q4P PRN 03/31 1145 AC IV Mupirocin 1 KATT Q6H 03/31 2300 AC 04/02 TOP 0420 Nystatin 1 KATT BID PRN 03/31 1245 AC TOP Polyethylene Glycol 17 GM DAILY 04/01 1000 AC 04/01 PO 1243 Primidone 250 MG DAILY 04/01 1000 AC 04/01 PO 1241 Primidone 500 MG QPM 03/31 2200 AC 04/01 PO 2327 Rufinamide 1,600 MG BID 03/31 2200 AC 04/01 PO 2326 Senna 187 MG ONCE ONE 04/01 1145 DC 04/01 PO 04/01 1146 1242 Sodium Chloride 1,000 ML Q13H 03/31 1300 DC 04/01 IV 04/01 1459 0452 Sodium Chloride 2 SPRAY Q4P PRN 03/31 1245 AC SHEYLA Terbinafine HCl 1 KATT AT BEDTIME 03/31 2200 AC 04/01 TOP 2328 Zinc Oxide 1 KATT DAILY 04/01 1000 04/01 TOP 1139 Last 24 Hrs of Lab/Lamont Results Last 24 Hrs of Labs/Mics: Laboratory Tests 04/02/17 0727: CBC w Diff Pending, WBC Pending, RBC Pending, Hgb Pending, Hct Pending, MCV Pending, MCH Pending, RDW Pending, Plt Count Pending, MPV Pending, PUBS MCHC Pending Assessment/Plan Assessment: 27-year-old male with a past medical history of severe learning disorder secondary to cerebral palsy, seizure, scoliosis, on G-tube feeding, history of aspiration pneumonia who lives in a nursing home was brought in after he was found to have low oxygen saturations. He was seen in the ER 10 days prior to this admission and was discharged home. Vitals at the time of admission blood pressure 126/72, respiratory rate 20, tachycardic to 10 afebrile, saturating 94% on 3 L of oxygen via nasal cannula. Labs pertinent for leukocytosis with a white blood cell count of 12,800, H&H of 12.9/30.8 and normal MCV of 89.6. Serum chemistries reveal a sodium of 138, potassium of 3.8, elevated bicarbonate of 32, anion gap of 12 with a BUN of 13 and a creatinine of 0.4. Lactic acid was 2.0. LFTs revealed total bili of 0.3, AST/ALT of 16/32, alkaline phosphatase elevated at 144. Chest x-ray shows new opacity at the right base which may be consistent with atelectasis or developing consolidation. In the ER he received Unasyn 3000 mg IV 1, bolus of normal saline thousand milliliters 1, treatment with Atrovent and Proventil. Assesment and Plan: Admit to [facility] #Acut hypoxic respiratory failure * Most likely 2/2 aspiration pneumonia. * Currently on Unasyn 3 g IV every 6 (day #3) * Blood cultures negative thus far * Maintain on aspiration precautions. * Continue with nebulizer therapy, oxygen therapy if warranted * Continue tube feeds Jevity 1.5 (237cc) via G tube 5 times daily, and decrease residuals, together with 200cc of water 6 times daily via G-tube every 4 hours round the clock after each tube feed (1185ml - total). Will palce nutrition conult to evaluate for continuous tube feeds * If continues to remain afebrile, will trasnition to oral antibiotics. * Monitor rsidulas > 200mls, four hours after bolus. #Hx of seizure disorder Continue home medications Mysoline 250mg every morning, and 500mg at bedtime with Rufinamide 1600mg via G-tube BID and Fycoma 6mg once daily via G tube. Maintain on aspiration and seizure precautions. #Dysphagia He is on Glycopyrate tabs, will switch him to 100mcg daily SC for secretions. Will get nutriotion conult to evaluate fr continuous tube feeds. - DVT prophylaxis - On heparin 5000IU TID SC - Diet - On tube feeds - Code Status - Full Code. Problem List: 1. Aspiration pneumonia 2. Acute respiratory failure with hypoxia 3. Cerebral palsy Pain Ratin Pain Location: NA Pain Goal: Pain 4 or less Pain Plan: PAin pathwaY Tomorrow's Labs & Rationales: cbc - tending leukocytosis DVT/Prophylaxis: pharmacological JEFF GAUTHIER,[facility] 04/02/17 1446: Attending MD Review Statement Attending Statement Attending MD Statement: examined this patient, discuss w/resident/PA/YARD ASSOCIATE, agreed w/resident/PA/YARD ASSOCIATE, reviewed EMR data (avail), discussed with nursing, reviewed images, amended to note Attending Assessment/Plan: Patient seen and examined, he is nonverbal at baseline. He is a 27-year-old male with history significant for severe mental retardation who was admitted with aspiration pneumonia. Currently getting treated with Unasyn. Please continue daughter for Unasyn as it has been discontinued as of last night. Continue TRC nebs. Patient had a fever spike this morning. We'll monitor. Continue other current medications. DVT px: Heparin subcutaneous.
[2017-04-02 14:27] VITALS: BP 100/68
[2017-04-03 01:02] VITALS: BP 110/70
[2017-04-03 07:11] VITALS: BP 98/48
[2017-04-03 08:14] LABS: ABSOLUTE BASOPHIL COUNT 0 /CUMM (0.0-0.2); ABSOLUTE EOSINOPHIL COUNT 0.1 /CUMM (0.0-0.7); ABSOLUTE GRANULOCYTE CT 5.4 /CUMM (1.4-6.5); ABSOLUTE LYMPH COUNT 2.2 /CUMM (1.2-3.4); ABSOLUTE MONOCYTE COUNT 0.8 /CUMM (0.10-0.60); BASOPHIL % 0.3 % (0.0-2.0); EOSINOPHIL % 1.1 % (0-5); GRANULOCYTE % 63.5 % (42.2-75.2); HEMATOCRIT 35.8 % (42-52); MEAN CORPUSCULAR HGB 29.9 PG (27.0-31.0); MEAN CORPUSCULAR HGB CONC 33.3 G/DL (33.0-37.0); MEAN CORPUSCULAR VOLUME 89.7 FL (80.0-94.0); PLATELET COUNT 219 /CUMM (130-400); RBC DISTRIBUTION WIDTH 13.4 % (11.5-14.5); WHITE BLOOD CELL COUNT 8.5 /CUMM (4.8-10.8)
--- NOTE | 2017-04-03 08:33 | PN- Housestaff ---
Objective Last 24 Hrs of Vital Signs/I&O Vital Signs Date Time Temp Pulse Resp B/P B/P Pulse O2 O2 Flow FiO2 Mean Ox Delivery Rate 04/03 0803 96 Nasal 1.0L Cannula 04/03 0711 99.0 90 20 98/48 98 Nasal Cannula 04/03 0102 99.4 98 20 110/70 96 Nasal Cannula 04/03 0000 Nasal 1.0L Cannula 04/02 1645 96 Nasal 2.0L Cannula 04/02 1427 97.3 81 20 100/68 95 Nasal 2.0L Cannula 04/02 0952 97 Nasal 2.0L Cannula Intake & Output 04/03 1600 04/03 0800 04/03 0000 Intake Total 587 1034 Output Total Balance 587 1034 Intake, IV 150 150 Intake, Oral 0 0 Intake, Tube 237 484 Feeding Intake, Tube 200 400 Irrigant Assessment/Plan Assessment: 27-year-old male with a past medical history of severe learning disorder secondary to cerebral palsy, seizure, scoliosis, on G-tube feeding, history of aspiration pneumonia who lives in a skilled nursing was brought in after he was found to have low oxygen saturations. He was seen in the ER 10 days prior to this admission and was discharged home. Vitals at the time of admission blood pressure 126/72, respiratory rate 20, tachycardic to 10 afebrile, saturating 94% on 3 L of oxygen via nasal cannula. Labs pertinent for leukocytosis with a white blood cell count of 12,800, H&H of 12.9/30.8 and normal MCV of 89.6. Serum chemistries reveal a sodium of 138, potassium of 3.8, elevated bicarbonate of 32, anion gap of 12 with a BUN of 13 and a creatinine of 0.4. Lactic acid was 2.0. LFTs revealed total bili of 0.3, AST/ALT of 16/32, alkaline phosphatase elevated at 144. Chest x-ray shows new opacity at the right base which may be consistent with atelectasis or developing consolidation. In the ER he received Unasyn 3000 mg IV 1, bolus of normal saline thousand milliliters 1, treatment with Atrovent and Proventil. Assesment and Plan: Admit to [facility] #Acut hypoxic respiratory failure * Most likely 2/2 aspiration pneumonia. * Currently on Unasyn 3 g IV every 6 (day #3) * Blood cultures negative thus far * Maintain on aspiration precautions. * Continue with nebulizer therapy, oxygen therapy if warranted * Continue tube feeds Jevity 1.5 (237cc) via G tube 5 times daily, and decrease residuals, together with 200cc of water 6 times daily via G-tube every 4 hours round the clock after each tube feed (1185ml - total). Will palce nutrition conult to evaluate for continuous tube feeds * If continues to remain afebrile, will trasnition to oral antibiotics. * Monitor rsidulas > 200mls, four hours after bolus. #Hx of seizure disorder Continue home medications Mysoline 250mg every morning, and 500mg at bedtime with Rufinamide 1600mg via G-tube BID and Fycoma 6mg once daily via G tube. Maintain on aspiration and seizure precautions. #Dysphagia He is on Glycopyrate tabs, will switch him to 100mcg daily SC for secretions. Will get nutriotion conult to evaluate fr continuous tube feeds. - DVT prophylaxis - On heparin 5000IU TID SC - Diet - On tube feeds - Code Status - Full Code.
--- NOTE | 2017-04-03 10:36 | PN- Housestaff ---
See Addendum Subjective Follow-up For: Acute hypoxic respiratory failure Aspiration pneumonia Cerebral palsy Chronic dysphagia status post G-tube placement Subjective: Interval history: Overnight there were no acute events. This morning the nurse reports that secretions have decreased over the past 24 hours. Patient has remained afebrile. Patient appears comfortable in bed at this time, no acute distress. Review of Systems Constitutional: Reports: see HPI. EENTM: Reports: see HPI. Cardiovascular: Reports: see HPI. Respiratory: Reports: see HPI. Gastrointestinal: Reports: see HPI. Genitourinary: Reports: see HPI. Musculoskeletal: Reports: see HPI. Objective Last 24 Hrs of Vital Signs/I&O Vital Signs Date Time Temp Pulse Resp B/P B/P Pulse O2 O2 Flow FiO2 Mean Ox Delivery Rate 04/03 0803 96 Nasal 1.0L Cannula 04/03 0711 99.0 90 20 98/48 98 Nasal Cannula 04/03 0102 99.4 98 20 110/70 96 Nasal Cannula 04/03 0000 Nasal 1.0L Cannula 04/02 1645 96 Nasal 2.0L Cannula 04/02 1427 97.3 81 20 100/68 95 Nasal 2.0L Cannula Intake & Output 04/03 1600 04/03 0800 04/03 0000 Intake Total 587 1034 Output Total Balance 587 1034 Intake, IV 150 150 Intake, Oral 0 0 Intake, Tube 237 484 Feeding Intake, Tube 200 400 Irrigant Physical Exam General Appearance: No Acute Distress, patient is lying in bed, easily arousable to tactile testing ablation. Skin: gastrostomy tube secured to left upper abdomen with no evidence of dehiscence Skin Temp/Moisture Exam: Warm/Dry HEENT: Mucous Membr. moist/pink Cardiovascular: Regular Rate, Normal S1, Normal S2 Lungs: bilateral rhonchi with inspiration with noticeable improvement over the past 24 hours. diminished breath sounds in the basilar regions. Abdomen: G-tube in place, secured with no evidence of erythema or dehiscence.abdomen slightly distended with interval improvement from yesterday Neurological: spontaneous movements in all 4 extremities with tactile stimulation.contractures from long-standing cerebral palsy, stable Vascular: Pulses Symmetrical Current Medications: Current Medications Sig/Jerrod Start time Last Medication Dose Route Stop Time Status Admin Acetaminophen 650 MG Q6P PRN 03/31 1145 AC PO Acetaminophen/ 1 TAB Q6P PRN 03/31 1145 AC Hydrocodone Bitart PO Albuterol Sulfate 3 ML EVERY 4 HRS/AWAKE 04/01 0800 AC 04/03 INH 0758 Albuterol Sulfate 3 ML Q4P PRN 03/31 1245 AC 03/31 INH 2031 Ampicillin Sodium/ 3,000 MG Q6H 04/02 1500 AC 04/03 Sulbactam Sodium IV 1030 Sodium Chloride 100 ML Clonazepam 1 MG DAILY 04/01 1000 AC 04/03 PO 04/08 0959 1036 Erythromycin 1 KATT BID 03/31 2200 AC 04/03 OPH 1034 Fluticasone 2 SPRAY DAILY 04/01 1000 AC 04/03 Propionate SHEYLA 1031 Glycopyrrolate 100 MCG DAILY 04/01 1000 AC 04/03 SC 1032 Guaifenesin 10 ML Q6P PRN 03/31 1245 AC PO Heparin Sodium 5,000 UNIT Q8 03/31 1400 AC 04/03 (Porcine) SC 0508 Ipratropium [place] 2.5 ML EVERY 4 HRS/AWAKE 04/01 0800 AC 04/03 INH 0758 Ipratropium [place] 2.5 ML Q6 03/31 1800 DC 03/31 INH 2031 Loratadine 10 MG DAILY 04/01 1000 AC 04/03 PO 1037 Lorazepam 2 MG AT BEDTIME 03/31 2200 AC 04/02 PO 2252 Morphine Sulfate 2 MG Q4P PRN 03/31 1145 AC IV Mupirocin 1 KATT Q6H 03/31 2300 AC 04/03 TOP 1033 Nystatin 1 KATT BID PRN 03/31 1245 AC TOP Polyethylene Glycol 17 GM DAILY 04/01 1000 AC 04/03 PO 1032 Primidone 250 MG DAILY 04/01 1000 AC 04/03 PO 1036 Primidone 500 MG QPM 03/31 2200 AC 04/02 PO 2252 Rufinamide 1,600 MG BID 03/31 2200 AC 04/03 PO 1031 Sodium Chloride 2 SPRAY Q4P PRN 03/31 1245 AC 04/02 SHEYLA 0944 Terbinafine HCl 1 KATT AT BEDTIME 03/31 2200 AC 04/02 TOP 2205 Zinc Oxide 1 KATT DAILY 04/01 1000 AC 04/03 TOP 1036 Last 24 Hrs of Lab/Lamont Results Last 24 Hrs of Labs/Mics: Laboratory Tests 04/03/17 0728: CBC w Diff NO MAN DIFF REQ, RBC 4.00 L, MCV 89.7, MCH 29.9, RDW 13.4, MPV 9.0, Gran % 63.5, Lymphocytes % 25.8, Monocytes % 9.3, Eosinophils % 1.1, Basophils % 0.3, Absolute Granulocytes 5.4, Absolute Lymphocytes 2.2, Absolute Monocytes 0.8 H, Absolute Eosinophils 0.1, Absolute Basophils 0, PUBS MCHC 33.3 Assessment/Plan Assessment: 27-year-old male with a past medical history of severe learning disorder secondary to cerebral palsy, seizure, scoliosis, on G-tube feeding, history of aspiration pneumonia who lives in a [place] [facility] was brought in after he was found to have low oxygen saturations. He was seen in the ER 10 days prior to this admission and was discharged home. Vitals at the time of admission blood pressure 126/72, respiratory rate 20, tachycardic to 10 afebrile, saturating 94% on 3 L of oxygen via nasal cannula. Chest x-ray shows new opacity at the right base which may be consistent with atelectasis or developing consolidation. In the ER he received Unasyn 3000 mg IV 1, bolus of normal saline thousand milliliters 1, treatment with Atrovent and Proventil. Assesment and Plan: Admit to [facility] Medicine #Acut hypoxic respiratory failure * Patient has remained afebrile over the past 24 hours. Leukocytosis of 13.3 has resolved today. * Day for Unasyn 3 g IV every 6. We'll plan to transition to antibiotics prior to discharge * Previous rest or culture from 2014 with Pseudomonas sensitive to ciprofloxacin , resistant to ceftaz * Blood cultures negative thus far * Maintain on aspiration precautions. * Continue with nebulizer therapy, oxygen therapy if warranted * Continue tube feeds Jevity 1.5 (237cc) via G tube 5 times daily, and decrease residuals, together with 200cc of water 6 times daily via G-tube every 4 hours round the clock after each tube feed (1185ml - total). Will palce nutrition conult to evaluate for continuous tube feeds #Hx of seizure disorder Continue home medications Mysoline 250mg every morning, and 500mg at bedtime with Rufinamide 1600mg via G-tube BID and Fycoma 6mg once daily via G tube. Maintain on aspiration and seizure precautions. #Dysphagia He is on Glycopyrate tabs, will switch him to 100mcg daily SC for secretions. Will get nutriotion conult to evaluate fr continuous tube feeds. - DVT prophylaxis - On heparin 5000IU TID SC - Diet - On tube feeds - Code Status - Full Code. Problem List: 1. Acute respiratory failure with hypoxia 2. Aspiration pneumonia Pain Ratin Pain Location: NA Pain Goal: Pain 4 or less Pain Plan: Pain pathway Tomorrow's Labs & Rationales: None required DVT/Prophylaxis: pharmacological
[2017-04-03 15:38] VITALS: BP 106/60
[2017-04-03 23:54] VITALS: BP 110/60
[2017-04-04 06:51] VITALS: BP 102/64
--- NOTE | 2017-04-04 07:26 | PN- Housestaff ---
See Addendum Subjective Follow-up For: Acute hypoxic respiratory failure Aspiration pneumonia Cerebral palsy Chronic dysphagia status post G-tube placement Complaints: no complaints Subjective: Patient seen and examined at bedside. He remains afebrile over the past 24 hrs. Of note he is non-verbal and so hx is limited, but he is moving all four extermities ,and is awake. Review of Systems Constitutional: Reports: see HPI. Objective Last 24 Hrs of Vital Signs/I&O Vital Signs Date Time Temp Pulse Resp B/P B/P Pulse O2 O2 Flow FiO2 Mean Ox Delivery Rate 04/04 0651 98.3 75 20 102/64 98 04/04 0000 94 Nasal 1.0L Cannula 04/03 2354 98.4 96 20 110/60 94 04/03 1700 98 Nasal 1.0L Cannula 04/03 1600 Nasal 2.0L Cannula 04/03 1538 98.1 89 18 106/60 97 04/03 0803 96 Nasal 1.0L Cannula Intake & Output 04/04 0800 04/04 0000 04/03 1600 Intake Total 400 0 774 Output Total 0 Balance 400 0 774 Intake, IV 200 Intake, Oral 0 0 Intake, Tube 574 Feeding Intake, Tube 200 200 Irrigant Number 0 2 Bowel Movements Output, 0 Gastric Drainage Physical Exam General Appearance: No Acute Distress, awake HEENT: Atraumatic, PERRLA, EOMI, Mucous Membr. moist/pink Neck: No JVD, No LAD Cardiovascular: Normal S1, Normal S2, No Murmurs Lungs: mild ronhci bilaterally Abdomen: Normal Bowel Sounds, Soft, No Tenderness, G tube in place; no erythema at site Extremities: b/l trace edema Current Medications: Current Medications Sig/Jerrod Start time Last Medication Dose Route Stop Time Status Admin Acetaminophen 650 MG Q6P PRN 03/31 1145 AC PO Acetaminophen/ 1 TAB Q6P PRN 03/31 1145 AC Hydrocodone Bitart PO Albuterol Sulfate 3 ML BID 04/04 1000 AC INH Albuterol Sulfate 3 ML EVERY 4 HRS/AWAKE 04/01 0800 DC 04/03 INH 2110 Albuterol Sulfate 3 ML Q4P PRN 03/31 1245 AC 03/31 INH 2031 Ampicillin Sodium/ 3,000 MG Q6H 04/02 1500 AC 04/04 Sulbactam Sodium IV 0239 Sodium Chloride 100 ML Clonazepam 1 MG DAILY 04/01 1000 AC 04/03 PO 04/08 0959 1036 Erythromycin 1 KATT BID 03/31 2200 AC 04/03 OPH 2224 Fluticasone 2 SPRAY DAILY 04/01 1000 AC 04/03 Propionate SHEYLA 1031 Glycopyrrolate 100 MCG DAILY 04/01 1000 AC 04/03 SC 1032 Guaifenesin 10 ML Q6P PRN 03/31 1245 AC PO Heparin Sodium 5,000 UNIT Q8 03/31 1400 AC 04/04 (Porcine) SC 0516 Ipratropium [place] 2.5 ML BID 04/04 1000 AC INH Ipratropium [place] 2.5 ML EVERY 4 HRS/AWAKE 04/01 0800 DC 04/03 INH 2110 Loratadine 10 MG DAILY 04/01 1000 AC 04/03 PO 1037 Lorazepam 2 MG AT BEDTIME 03/31 2200 AC 04/03 PO 2223 Morphine Sulfate 2 MG Q4P PRN 03/31 1145 AC IV Mupirocin 1 KATT Q6H 03/31 2300 AC 04/04 TOP 0516 Nystatin 1 KATT BID PRN 03/31 1245 AC TOP Perampanel 6 MG 1800 04/04 1800 AC PO Polyethylene Glycol 17 GM DAILY 04/01 1000 AC 04/03 PO 1032 Primidone 250 MG DAILY 04/01 1000 AC 04/03 PO 1036 Primidone 500 MG QPM 03/31 2200 AC 04/03 PO 2223 Rufinamide 1,600 MG BID 03/31 2200 AC 04/03 PO 2223 Sodium Chloride 2 SPRAY Q4P PRN 03/31 1245 AC 04/02 SHEYLA 0944 Terbinafine HCl 1 KATT AT BEDTIME 03/31 2200 AC 04/03 TOP 2224 Zinc Oxide 1 KATT DAILY 04/01 1000 AC 04/03 TOP 1036 Last 24 Hrs of Lab/Lamont Results Last 24 Hrs of Labs/Mics: Laboratory Tests 04/03/17727: CBC w Diff NO MAN DIFF REQ, RBC 4.00 L, MCV 89.7, MCH 29.9, RDW 13.4, MPV 9.0, Gran % 63.5, Lymphocytes % 25.8, Monocytes % 9.3, Eosinophils % 1.1, Basophils % 0.3, Absolute Granulocytes 5.4, Absolute Lymphocytes 2.2, Absolute Monocytes 0.8 H, Absolute Eosinophils 0.1, Absolute Basophils 0, PUBS MCHC 33.3 Orders Radiology Findings: FINDINGS: Chest a stable in appearance without evidence of significant change with elevated right hemidiaphragm and discoid atelectasis versus scarring at the right lung base. No new infiltrate is identified. Central congestion and bronchial wall thickening appears somewhat improved. There are stable appearing postsurgical changes with a stimulator device of some sort also noted on the left. IMPRESSION: Fairly stable appearing chest x-ray without evidence of an infiltrate. Assessment/Plan Assessment: 27-year-old male with a past medical history of severe learning disorder secondary to cerebral palsy, seizure, scoliosis, on G-tube feeding, history of aspiration pneumonia who lives in a [facility] was brought in after he was found to have low oxygen saturations. He was seen in the ER 10 days prior to this admission and was discharged home. Vitals at the time of admission blood pressure 126/72, respiratory rate 20, tachycardic to 10 afebrile, saturating 94% on 3 L of oxygen via nasal cannula. Chest x-ray shows new opacity at the right base which may be consistent with atelectasis or developing consolidation. In the ER he received Unasyn 3000 mg IV 1, bolus of normal saline thousand milliliters 1, treatment with Atrovent and Proventil. Assesment and Plan: #Acut hypoxic respiratory failure * Patient has remained afebrile over the past 24 hours. Leukocytosis of 13.3 has resolved. No labs for today * Continue Unasyn 3 g IV every 6. Transition to PO Augmentin upon discharge. * Blood cultures negative thus far * Continue to maintain on aspiration precautions. * Continue with nebulizer therapy, oxygen therapy if warranted * Continue tube feeds Jevity 1.5 (237cc) via G tube 5 times daily, and decrease residuals, together with 200cc of water 6 times daily via G-tube every 4 hours round the clock after each tube feed (1185ml - total). #Hx of seizure disorder Continue home medications Mysoline 250mg every morning, and 500mg at bedtime with Rufinamide 1600mg via G-tube BID and Fycoma 6mg once daily via G tube. Maintain on aspiration and seizure precautions. #Dysphagia Continue Glycopyrrate 100mcg daily SC for secretions. - DVT prophylaxis - On heparin 5000IU TID SC - Diet - On tube feeds - Code Status - Full Code. Problem List: 1. Acute respiratory failure with hypoxia Pain Ratin Pain Location: n/a Pain Goal: Remain pain free (non-verbal) Pain Plan: tylenol Tomorrow's Labs & Rationales: n/a Discharge Plan Discharge Disposition: home Stable for Discharge? Yes Anticipated Discharge (Day): today If Discharged Today/In 24 Hrs: CMR done
[2017-04-04] MEDS ORDERED: AUGMENTIN 875-1 EACH PO ×2 (09:23→09:42)
--- NOTE | 2017-04-04 09:27 | Patient Discharge Instructions ---
Discharge Instructions General Discharge Information You were seen/treated for: - Acute hypoxic respiratory failure secondary to aspiration PNA. Special Instructions: Please follow up with your primary care physician in one week. Please repeat a CBC in a week to monitor H&H. Diet Recommended Diet: Tube feeds Activity Activity Self Limited: Yes Acute Coronary Syndrome Inclusion Criteria At DC or during hospital stay patient has or had the following: ACS DIAGNOSIS No Discharge Core Measures Meds if any: Prescribed or Continued at Discharge Meds if any: NOT Prescribed or Continued at Discharge Congestive Heart Failure Inclusion Criteria At DC or during hospital stay patient has or had the following: CHF DIAGNOSIS No Discharge Core Measures Meds if any: Prescribed or Continued at Discharge Meds if any: NOT Prescribed or Continued at Discharge Cerebrovascular accident Inclusion Criteria At DC or during hospital stay patient has or had the following: CVA/TIA Diagnosis No Discharge Core Measures Meds if any: Prescribed or Continued at Discharge Meds if any: NOT Prescribed or Continued at Discharge Venous thromboembolism Inclusion Criteria VTE Diagnosis No VTE Type NONE VTE Confirmed by (Test) NONE Discharge Core Measures - Per Current guidelines, there needs to be overlap - treatment for the first 5 days of Warfarin therapy. - If discharged on Warfarin prior to 5 days of - overlap therapy, the patient will need to be - assessed for post discharge needs including - *Post discharge parental anticoagulation - *Warfarin and/or parental anticoagulation education - *Follow up date to check INR post discharge At least 5 days overlap therapy as Inpatient No Meds if any: Prescribed or Continued at Discharge Note: Overlap Therapy is Warfarin and Anticoagulant Meds if any: NOT Prescribed or Continued at Discharge
--- NOTE | 2017-04-04 09:41 | Discharge Summary ---
Visit Information Visit Dates Admission Date: 03/31/17 Discharge Date: 04/04/17 Hospital Course Course Attending Physician: ENOCH PORTER M.D Primary Care Physician: KEEGAN GAUTHIER,[facility] Course: 27-year-old male with a past medical history of severe learning disorder secondary to cerebral palsy, seizure, scoliosis, on G-tube feeding, history of aspiration pneumonia who [facility] was brought in after he was found to have low oxygen saturations. He was seen in the ER 10 days prior to this admission and was discharged home. Vitals at the time of admission blood pressure 126/72, respiratory rate 20, tachycardic to 10 afebrile, saturating 94% on 3 L of oxygen via nasal cannula. Chest x-ray shows new opacity at the right base which may be consistent with atelectasis or developing consolidation. In the ER he received Unasyn 3000 mg IV 1, bolus of normal saline thousand milliliters 1, treatment with Atrovent and Proventil. He was admitted to [facility] and the following problmes were addressed: #Acut hypoxic respiratory failure Patient was started on Unasyn for aspiration pneumonia to provide for anaerobic coverage. His blood cultures remained negative. He was maintained on aspiration precautions. He was transitioned to PO Augmentin for a totalo of 7 dyas of antibiotic course. He was on bolus tubefeeds Jevity 1.5 (237cc) via G tube 5 times daily, and decrease residuals, together with 200cc of water 6 times daily via G-tube every 4 hours round the clock after each tube feed (1185ml - total). We monitored him for residuals which were minimal (~20mls). #Hx of seizure disorder He was continued on home medications Mysoline 250mg every morning, and 500mg at bedtime with Rufinamide 1600mg via G-tube BID and Fycompa 6mg once daily via G tube. #Dysphagia He was on Glycopyrate tabs at prison which was switched to 100mcg daily SC for secretions. #Rash on mid back. On examination, patient as found to have faruncles located on the right mid back spanning about 4cm x5cm. He should apply bacitracin 1 monroe TID PRN. - DVT prophylaxis - He was on heparin 5000IU TID SC Allergies: Coded Allergies: NO KNOWN ALLERGIES (10/27/16) Significant Procedures: SERVICE DATE: 03/31/17 EXAM TYPE: RAD - XRY-PORTABLE CHEST XRAY FINDINGS: The study redemonstrates the chronic dextroscoliosis. There are incompletely visualized vertical metallic rods and cerclage wires in the mid and lower thoracic spine. There is marked crowding of the posterior ribs on the left. The right lung is poorly expanded compared to the left. There is new opacity at the right base, which may be consistent with developing consolidation or atelectasis. The cardiac silhouette is normal in size. The left chest wall generator with cephalad extending leads are unchanged. There are degenerative changes at the left shoulder joint. IMPRESSION: 1. There is new opacity at the right base which may be consistent with atelectasis or developing consolidation. SERVICE DATE: 03/31/17 EXAM TYPE: RAD - XRY-PORTABLE CHEST XRAY FINDINGS: Chest a stable in appearance without evidence of significant change with elevated right hemidiaphragm and discoid atelectasis versus scarring at the right lung base. No new infiltrate is identified. Central congestion and bronchial wall thickening appears somewhat improved. There are stable appearing postsurgical changes with a stimulator device of some sort also noted on the left. IMPRESSION: Fairly stable appearing chest x-ray without evidence of an infiltrate. Disposition Summary Disposition Principal Diagnosis: Acute hypoxic respiratory failure secondary to aspiration pneumonia. Additional Diagnosis: Hx of seizure disorder Hx of dysphagia on G tube Discharge Disposition: home or self care Discharge Instructions General Discharge Information Code Status: Full Code Patient's Diet: On tube feeds (Jevity 1.5) Patient's Activity: As tolerated Follow-Up Instructions/Appts: Please follow up woth your primary care physician in one week. Medications at Discharge Discharge Medications: Continue taking these medications: Clonazepam (Klonopin) 1 MG TABLET 1 Tablet ORAL DAILY Primidone (Mysoline) 250 MG TABLET 1 Tablet G TUBE DAILY Primidone (Mysoline) 250 MG TABLET 2 Tablet G TUBE Every night Polyethylene Glycol 3350 (Miralax) 17 GRAM POWD.PACK 1 Packet G TUBE DAILY Instructions: dissolve in water Comments: LAST GIVEN 07/27/16 @ 0930 Rufinamide (Banzel) 400 MG TABLET 4 Tablet G TUBE TWICE DAILY Qty = 120 Fluticasone Propionate (Flonase Allergy Relief) 50 MCG/ACTUATION SPRAY.SUSP 1 [place] In the nose DAILY Bacitracin (Bacitracin) 500 UNIT/GRAM OINT...G. 1 Application On the skin 4 TIMES A DAY Instructions: apply to affected area(s) Nystatin (Nystatin) 1 BILLION UNIT POWDER.EA. 1 Application On the skin TWICE DAILY as needed for AFFECTED AREAS Zinc Oxide (Diaper Rash) 10 % OINT...G. 1 Application On the skin DAILY as needed for AFFECTED AREAS Albuterol Sulfate (Albuterol Sulfate) 2.5 MG/3 ML (0.083 %) VIAL.NEB 1 Vial Inhale Solution EVERY 4 HOURS NEEDED as needed for WHEEZING Lorazepam (Lorazepam Intensol) 2 MG/ML ORAL.CONC 1 Milliliters SUBLINGUAL DAILY as needed for AFTER SEIZURE Loratadine (Claritin) 5 MG/5 ML SOLUTION 10 Milliliters G TUBE DAILY Erythromycin Base/Ethanol (Erythromycin 2% Solution) 2 % SOLUTION 1 Application On the skin TWICE DAILY Sodium Chloride For Inhalation (Sodium Chloride) 0.9 % VIAL.NEB 1 VIAL ORAL EVERY SIX HOURS Qty = 360 Docusate Sodium (Stool Softener) 50 MG/5 ML LIQUID 10 Milliliters G TUBE DAILY Comments: NOT GIVEN Guaifenesin/Dextromethorphan (Adult Robitussin Peak Cold Liq) 100 MG-10 MG/5 ML LIQUID 10 Milliliters G TUBE THREE TIMES DAILY as needed for COUGH Qty = 210 Instructions: TAKE FOR 7 DAYS Lactose-Reduced Food/Fiber (Jevity 1.5 Sam Liquid) 0.06 GRAM-1.5 KCAL/ML LIQUID 1 Can G TUBE 5 TIMES A DAY Perampanel (Fycompa) 6 MG TABLET 1 Tablet G TUBE DAILY Qty = 120 Glycopyrrolate (Glycopyrrolate) 1 MG TABLET 1 Tablet ORAL EVERY 8 HOURS Ipratropium Mccarr (Ipratropium Mccarr) 0.2 MG/ML (0.02 %) SOLUTION 1 Vial Inhale Solution EVERY SIX HOURS Acetaminophen (Tylenol) 325 MG TABLET 2 Tablet ORAL EVERY 4 HOURS NEEDED as needed for MILD PAIN/FEVER Lorazepam (Ativan) 2 MG TABLET 1 Tablet ORAL AT BEDTIME Qty = 60 Terbinafine HCl (Lamisil At) 1 % CREAM..G. 1 Application On the skin AT BEDTIME Qty = 60 Start taking the following new medications: Amoxicillin/Potassium Clav (Augmentin 875-125 Tablet) 875 MG-125 MG TABLET 1 Tablet ORAL TWICE DAILY Qty = 11 No Refills Copies To: KEEGAN GAUTHIER,NORMA Attending MD Review Statement Documenting Attending: ENOCH PORTER M.D Other Findings: I have reviewed the discharge summary.
--- NOTE | 2017-04-04 14:08 | NUR ---
wound care: requested by nursing staff to evaluate pt for skin alteration to right back - ? rash - upon assessment, pt noted with a 3 cm clustered area of purulent fluid filled blisters along right flank area - suspicious presentation for ? shingles type rash vs folliculitis- hx reviewed - mds aware of rash and dx as 'furuncle' please refer to md recommendation for topical bacitracin
[2017-04-04 14:51] VITALS: BP 110/68
[2017-04-04 18:02] VITALS: BP 110/68
== END 2017-04-04 18:30 | DRG 177 ==
LOC: ERH 09:15 → ERHI 10:53 → 2NB 10:53 → ERH 10:55 → ERHI 10:55 → CANRESERV 13:38 → ENRESERV 13:38 → ENTRNSPT 17:32 → 2NB 17:53 → CMPTRNSPT 18:21 → ENPENDDIS 04-04 15:52 → 2NB 04-04 18:30
PROVIDERS: Internal Medicine; Internal Medicine Infectious Disease; Physician Assistant Medical; ADMIT Internal Medicine
DX: J69.0 Pneumonitis due to inhalation of food and vomit (principal); J96.21 Acute and chronic respiratory failure with hypoxia; F72 Severe intellectual disabilities; G80.9 Cerebral palsy, unspecified; G40.909 Epilepsy, unspecified, not intractable, without status epilepticus; M41.9 Scoliosis, unspecified; R21 Rash and other nonspecific skin eruption
CPT/HCPCS: 2NSBP; 36415; 81003; 82436; 87040; 87449; 87450; 96361; 96374; J1644

== ENCOUNTER 2017-09-16 03:19 | Inpatient (IN) | payer OTHER, MEDICARE ==
[~2017-09-16] VITALS: Ht 152.4 cm; Wt 57.2 kg
[~2017-09-16 03:19] MED LIST changes: +ATIVAN2 MG PO; +AUGMENTIN 875-1 EACH PO; +FYCOMPA6 MG G TUBE; +GLYCOPYRROLATE1 M1 PO; +IPRATROPIU0.2 MG/1 M INH/SOL; +JEVITY 1.5 CAL237 ML G TUBE; +TYLENOL325 M1 PO
[2017-09-16 04:14] LABS: ABSOLUTE BASOPHIL COUNT 0 /CUMM (0.0-0.2); ABSOLUTE EOSINOPHIL COUNT 0 /CUMM (0.0-0.7); ABSOLUTE GRANULOCYTE CT 11.6 /CUMM (1.4-6.5); ABSOLUTE MONOCYTE COUNT 1.4 /CUMM (0.10-0.60); BASOPHIL % 0.3 % (0.0-2.0); EOSINOPHIL % 0.3 % (0-5); GRANULOCYTE % 76.9 % (42.2-75.2); HEMATOCRIT 41.2 % (42-52); MEAN CORPUSCULAR HGB 30.1 PG (27.0-31.0); MEAN CORPUSCULAR HGB CONC 33.5 G/DL (33.0-37.0); MEAN PLATELET VOLUME 9.9 FL (7.4-10.4); PLATELET COUNT 317 /CUMM (130-400); RED BLOOD CELL CT 4.58 /CUMM (4.70-6.10); WHITE BLOOD CELL COUNT 15.1 /CUMM (4.8-10.8)
--- NOTE | 2017-09-16 04:40 | ED DYSPNEA/ASTHMA COMPLAINT ---
History of Present Illness General Chief Complaint: Dyspnea (COPD, CHF, Other) Stated Complaint: "BIBA PER EMS CONGESTION, LOW O2" Source: patient, old records, EMS, W10 Exam Limitations: clinical condition Vital Signs & Intake/Output Vital Signs & Intake/Output Vital Signs Date Time Temp Pulse Resp B/P B/P Pulse O2 O2 Flow FiO2 Mean Ox Delivery Rate 09/16 0626 99.9 94 20 101/58 98 Nasal 2.0L Cannula 09/161 96 Nasal 2.0L Cannula 09/16 032 99.0 110 20 130/67 95 Room Air Allergies Coded Allergies: NO KNOWN ALLERGIES (10/27/16) Reconcile Medications Acetaminophen (Tylenol) 325 MG TABLET 2 TAB PO Q4 HRS NEEDED PRN MILD PAIN/ FEVER (Reported) Albuterol Sulfate 2.5 MG/3 ML (0.083 %) VIAL.NEB 1 Vial INH/LENNY Q4P PRN WHEEZING (Reported) Bacitracin 500 UNIT/GRAM OINT...G. 1 KATT TOP 4 TIMES/DAY AFFECTED AREAS ( Reported) apply to affected area(s) Clonazepam (Klonopin) 1 MG TABLET 1 TAB PO DAILY ANXIETY (Reported) Docusate Sodium (Stool Softener) 50 MG/5 ML LIQUID 10 ML G TUBE DAILY STOOL SOFTENER (Reported) Erythromycin Base/Ethanol (Erythromycin 2% Solution) 2 % SOLUTION 1 KATT TOP BID RASH (Reported) Fluticasone Propionate (Flonase Allergy Relief) 50 MCG/ACTUATION SPRAY.SUSP 1 SPRAY SHEYLA DAILY ALLERGIES (Reported) Glycopyrrolate 1 MG TABLET 1 TAB PO Q8 SECRETION (Reported) Guaifenesin/Dextromethorphan (Adult Robitussin Peak Cold Liq) 100 MG-10 MG/5 ML LIQUID 10 ML G TUBE TID PRN COUGH TAKE FOR 7 DAYS Ipratropium [place] Bird 0.2 MG/ML (0.02 %) SOLUTION 1 Vial INH/LENNY Q6 BREATHING PROBLEMS (Reported) Lactose-Reduced Food/Fiber (Jevity 1.5 Sam Liquid) 0.06 GRAM-1.5 KCAL/ML LIQUID 1 CAN G TUBE 5 TIMES A DAY SUPPLEMENT (Reported) Loratadine (Claritin) 5 MG/5 ML SOLUTION 10 ML G TUBE DAILY ALLERGIES ( Reported) Lorazepam (Lorazepam Intensol) 2 MG/ML ORAL.CONC 1 ML SL DAILY PRN AFTER SEIZURE (Reported) Lorazepam (Ativan) 2 MG TABLET 1 TAB PO AT BEDTIME ANXIETY (Reported) Nystatin 1 BILLION UNIT POWDER.EA. 1 KATT TOP BID PRN AFFECTED AREAS (Reported ) Perampanel (Fycompa) 6 MG TABLET 1 TAB G TUBE DAILY SEIZURES (Reported) Polyethylene Glycol 3350 (Miralax) 17 GRAM POWD.PACK 1 PAC G TUBE DAILY CONSTIPATION (Reported) dissolve in water Primidone (Mysoline) 250 MG TABLET 1 TAB G TUBE DAILY SEIZURES (Reported) Primidone (Mysoline) 250 MG TABLET 2 TAB G TUBE QPM SEIZURES (Reported) Rufinamide (Banzel) 400 MG TABLET 4 TAB G TUBE BID SEIZURES (Reported) Sodium Chloride For Inhalation (Sodium Chloride) 0.9 % VIAL.NEB 1 VIAL PO Q6 BREATHING PROBLEMS (Reported) Terbinafine HCl (Lamisil At) 1 % CREAM..G. 1 KATT TOP AT BEDTIME NAILS ( Reported) Zinc Oxide (Diaper Rash) 10 % OINT...G. 1 KATT TOP DAILY PRN AFFECTED AREAS ( Reported) Triage Note: BIBA FROM [place]. PER STAFF PT HAD LOW SPO2 IN THE 80'S. PT SUCTIONED AND PLACED ON O2 AND CONTINUED WITH LOW SPO2. UPON EMS ARRIVAL PT PLACED ON 4LNC AND SPO2 95%. PT NON VERBAL BASELINE HAS HX OF CEREBAL PALSY. PT DESAT INTO 84-85% AND COUGH UP THICK YELLOW SPUTUM. PT SUCTIONED WITH PATRICIAKAR AND SPO2 95-97% ON 2 LNC. PT HAS OPEN WOUNDS TO LEFT BUTTOCKS AND GROIN IS RED. PT CHANGED FOR INCONT OF URINE. J-TUBE NOTED AND FLUSHED EASLIY. Triage Nurses Notes Reviewed? yes Onset: Just prior to arrival Duration: hour(s):, constant, continues in ED Timing: recent history Severity: moderate Activities at Onset: rest Prior Episodes/Possible Cause: frequent episodes Modifying Factors: Improves With: other (oxygen suctioning). Associated Symptoms: cough HPI: Prior to admission patient noted to have increased work of breathing and secretions low oxygen saturation. There's been no fever chills nausea vomiting diarrhea abdominal pain dysuria chest pain bleeding change in activity noted. Past History Travel History Traveled to [place] past 21 day No Medical History Any Pertinent Medical History? see below for history Neurological: seizure, PROFOUND INTELLECTUAL D/O CEREBRAL PALSY EENT: allergies, DYSPHAGIA RECURRENT ASPIRATIONS Cardiovascular: NONE Respiratory: bronchitis Gastrointestinal: G-TUBE Hepatic: NONE Renal: NONE Musculoskeletal: SCOLIOSIS Psychiatric: NONE Endocrine: NONE Blood Disorders: NONE Cancer(s): NONE NURSE GENERAL DUTY/Reproductive: NONE History of MRSA: No History of VRE: No History of CDIFF: No Influenza Vaccine: 06/29/17 Surgical History Surgical History: RHODES MOHAN status post vagal nerve stimulator Psychosocial History Who do you live with Paid Attentent What is your primary language Chinese Tobacco Use: Never used Family History Hx Contributory? No Review of Systems Review of Systems Constitutional: Reports: no symptoms. EENTM: Reports: no symptoms. Respiratory: Reports: see HPI, cough, short of breath, sputum production. Cardiovascular: Reports: no symptoms. GI: Reports: no symptoms. Genitourinary: Reports: no symptoms. Musculoskeletal: Reports: no symptoms. Skin: Reports: no symptoms. Neurological/Psychological: Reports: no symptoms. Hematologic/Endocrine: Reports: no symptoms. Immunologic/Allergic: Reports: no symptoms. All Other Systems: Reviewed and Negative Physical Exam Physical Exam General Appearance: awake, moderate distress Head: atraumatic Eyes: Bilateral: normal appearance, PERRL, EOMI. Ears, Nose, Throat: normal pharynx Neck: normal inspection, supple Respiratory: chest non-tender, rhonchi Cardiovascular: regular rate/rhythm, normal peripheral pulses, tachycardia, norml femoral pulses equa Peripheral Pulses: 4+ carotid (R), 4+ carotid (L) Gastrointestinal: normal bowel sounds, soft, non-tender, no organomegaly Extremities: contractures UE LE Neurologic/Psych: awake, motor/sensory deficits Skin: rash (intertrigo scrotum/penis/groin), left buttocks decubitus ulcer Lymphatic: no anterior cervical rohan Core Measures ACS in differential dx? No CVA/TIA Diagnosis No Sepsis Present: No Sepsis Focused Exam Completed? No Progress Differential Diagnosis: bronchitis, pneumonia Plan of Care: Orders Procedure Date/time Status Patient Data 09/16 06 Active OXYGEN SETUP (GEN) 09/16 523 Active Saline Lock 09/16 523 Active Admit to inpatient 09/16 523 Active Vital Signs 09/16 523 Active Activity/Ambulation 09/16 523 Active Code Status 09/16 523 Active BLOOD CULTURE 09/16 354 Active COMPREHENSIVE METABOLIC PANEL 09/16 035 Complete CBC WITHOUT DIFFERENTIAL 12/29 0354 Complete Laboratory Tests 09/16/17 0450: Anion Gap 12, Estimated GFR > 60, BUN/Creatinine Ratio 37.5 H, Glucose 102 H, Calcium 9.7, Total Bilirubin 0.3, AST 21, ALT 36, Alkaline Phosphatase 129 H, Total Protein 7.8, Albumin 4.4, Globulin 3.4, Albumin/Globulin Ratio 1.3 09/16/17 0400: CBC w Diff NO MAN DIFF REQ, RBC 4.58 L, MCV 90.0, MCH 30.1, RDW 15.0 H, MPV 9.9, Gran % 76.9 H, Lymphocytes % 13.4 L, Monocytes % 9.1, Eosinophils % 0.3, Basophils % 0.3, Absolute Granulocytes 11.6 H, Absolute Lymphocytes 2.0, Absolute Monocytes 1.4 H, Absolute Eosinophils 0, Absolute Basophils 0, PUBS MCHC 33.5 Microbiology 09/16 0437 BLOOD: Blood Culture - RECD 09/16 035 BLOOD: Blood Culture - ORD Diagnostic Imaging: Viewed by Me: Radiology Read. Discussed w/RAD: Radiology Read. Initial ED EKG: none Departure Departure Disposition: STILL A PATIENT Condition: Stable Clinical Impression Primary Impression: Aspiration pneumonia Referrals: Nicolás Guerrier MD (PCP/Family) Departure Forms: Customer Survey General Discharge Information Admission Note Spoke With: Rani Mirza MD Documentation of Exam: Documentation of any treatments & extenuating circumstances including Concerns Regarding Discharge (functional status, medication knowledge or non-compliance, living conditions, etc.) that warrant an admission rather than observation: Supplemental oxygen pulmonary toilet IV antibiotics medication adjustment continuing care discharge planning. Critical Care Note Critical Care Note Critical Care Time: non-applicable
--- NOTE | 2017-09-16 05:15 | RADIOLOGY REPORT ---
XR PORTABLE CHEST CLINICAL INFORMATION: Cerebral palsy. G-tube feeding with hypoxia. COMPARISON: Chest x-ray July 31, 2017. Chest CT August 03, 2017. TECHNIQUE: Portable frontal view of the chest was obtained. FINDINGS: Severe scoliosis with spinal fusion rods again noted, limiting assessment. Osseous structures are stable. A left-sided vagal nerve stimulator is again noted. Low lung volumes. Cardiac silhouette is enlarged and unchanged. Hazy opacity within the left midlung and retrocardiac opacity which have progressed and that may reflect atelectasis, pneumonia, or the sequela of aspiration. IMPRESSION: - Hazy opacity within the left midlung and retrocardiac opacity which have progressed and that may reflect atelectasis, pneumonia, or the sequela of aspiration. - Additional stable chronic findings as described.
--- NOTE | 2017-09-16 07:34 | History & Physical ---
Lisa Khan 09/16/17 0733: General Information and HPI MD Statement: I have seen and personally examined SHIRLEY BRUNO and documented this H& P. 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 Patient is nonverbal at baseline, no details available history is mostly obtained from the charts and shelter staff. As per staff at the shelter patient was noted to have increased work of breathing(appeared short of breath) with copious thick secretions and low oxygen levels at the shelter( desaturating to 80%). Despite of adequate suctioning, patient remained dyspneic , was placed on 4 L of oxygen through nasal cannula and was brought in the ER for further evaluation. In the ER patient was suctioned with the Yanker and oxygen levels improved to 95 % on 2 L. He had a low grade temperature of 99.9 with a borderline blood pressure. Patient was noted to have open wounds on the left buttock and groin appeared red. No complaints of vomiting/ diarrhea. Patient is incontinent of urine, from bedpans. Labs were evident for leukocytosis and chest x-ray revealed hazy opacity within the left mid lung and retrocardiac opacity, reflecting possible atelectasis/ pneumonia. Allergies/Medications Allergies: Coded Allergies: NO KNOWN ALLERGIES (NONE 09/16/17) Home Med list Acetaminophen (Tylenol) 325 MG TABLET 2 TAB PO Q4 HRS NEEDED PRN MILD PAIN/ FEVER (Reported) Albuterol Sulfate 2.5 MG/3 ML (0.083 %) VIAL.NEB 1 Vial INH/LENNY Q4P PRN WHEEZING (Reported) Bacitracin 500 UNIT/GRAM OINT...G. 1 KATT TOP 4 TIMES/DAY AFFECTED AREAS ( Reported) apply to affected area(s) Clonazepam (Klonopin) 1 MG TABLET 1 TAB PO DAILY ANXIETY (Reported) Docusate Sodium (Stool Softener) 50 MG/5 ML LIQUID 10 ML G TUBE DAILY STOOL SOFTENER (Reported) Erythromycin Base/Ethanol (Erythromycin 2% Solution) 2 % SOLUTION 1 KATT TOP BID RASH (Reported) Fluticasone Propionate (Flonase Allergy Relief) 50 MCG/ACTUATION SPRAY.SUSP 1 SPRAY SHEYLA DAILY ALLERGIES (Reported) Glycopyrrolate 1 MG TABLET 1 TAB PO Q8 SECRETION (Reported) Guaifenesin/Dextromethorphan (Adult Robitussin Peak Cold Liq) 100 MG-10 MG/5 ML LIQUID 10 ML G TUBE TID PRN COUGH TAKE FOR 7 DAYS Ipratropium [place] 0.2 MG/ML (0.02 %) SOLUTION 1 Vial INH/LENNY Q6 BREATHING PROBLEMS (Reported) Lactose-Reduced Food/Fiber (Jevity 1.5 Sam Liquid) 0.06 GRAM-1.5 KCAL/ML LIQUID 1 CAN G TUBE 5 TIMES A DAY SUPPLEMENT (Reported) Loratadine (Claritin) 5 MG/5 ML SOLUTION 10 ML G TUBE DAILY ALLERGIES ( Reported) Lorazepam (Lorazepam Intensol) 2 MG/ML ORAL.CONC 1 ML SL DAILY PRN AFTER SEIZURE (Reported) Lorazepam (Ativan) 2 MG TABLET 1 TAB PO AT BEDTIME ANXIETY (Reported) Nystatin 1 BILLION UNIT POWDER.EA. 1 KATT TOP BID PRN AFFECTED AREAS (Reported ) Perampanel (Fycompa) 6 MG TABLET 1 TAB G TUBE DAILY SEIZURES (Reported) Polyethylene Glycol 3350 (Miralax) 17 GRAM POWD.PACK 1 PAC G TUBE DAILY CONSTIPATION (Reported) dissolve in water Primidone (Mysoline) 250 MG TABLET 1 TAB G TUBE DAILY SEIZURES (Reported) Primidone (Mysoline) 250 MG TABLET 2 TAB G TUBE QPM SEIZURES (Reported) Rufinamide (Banzel) 400 MG TABLET 4 TAB G TUBE BID SEIZURES (Reported) Sodium Chloride For Inhalation (Sodium Chloride) 0.9 % VIAL.NEB 1 VIAL PO Q6 BREATHING PROBLEMS (Reported) Terbinafine HCl (Lamisil At) 1 % CREAM..G. 1 KATT TOP AT BEDTIME NAILS ( Reported) Zinc Oxide (Diaper Rash) 10 % OINT...G. 1 KATT TOP DAILY PRN AFFECTED AREAS ( Reported) Past History Travel History Traveled to [place] past 21 day No Medical History Neurological: seizure, PROFOUND INTELLECTUAL D/O CEREBRAL PALSY EENT: allergies, DYSPHAGIA RECURRENT ASPIRATIONS Cardiovascular: NONE Respiratory: bronchitis Gastrointestinal: G-TUBE Hepatic: NONE Renal: NONE Musculoskeletal: SCOLIOSIS Psychiatric: NONE Endocrine: NONE Blood Disorders: NONE Cancer(s): NONE STONEWORK TRACER/Reproductive: NONE History of MRSA: No History of VRE: No History of CDIFF: No Influenza Vaccine: 06/29/17 Surgical History Surgical History: RHODES MOHAN status post vagal nerve stimulator Past Family/Social History Functional Ability ADLs Needs Assist: dressing, eating, toileting, bathing. Ambulation: non-ambulatory IADLs Needs Assist: shopping, housework, finances, food prep, telephone, transportation, medication admin. Review of Systems Review of Systems Constitutional: Denies: see HPI. EENTM: Denies: see HPI. Cardiovascular: Denies: see HPI. Exam & Diagnostic Data Last 24 Hrs of Vital Signs/I&O Vital Signs Date Time Temp Pulse Resp B/P B/P Pulse O2 O2 Flow FiO2 Mean Ox Delivery Rate 09/16 0804 99.3 100 16 137/79 96 Nasal 2.0L Cannula 09/16 0626 99.9 94 20 101/58 98 Nasal 2.0L Cannula 09/16 0411 96 Nasal 2.0L Cannula 09/16 0321 99.0 110 20 130/67 95 Room Air Intake & Output 09/16 1600 09/16 0800 09/16 0000 Intake Total Output Total Balance Patient 160 lb Weight Weight Estimated Measurement Method Physical Exam General Appearance Alert Skin No Rashes, No Breakdown Skin Temp/Moisture Exam: Warm/Dry HEENT Atraumatic, PERRLA, EOMI Cardiovascular Regular Rate, Normal S1, Normal S2 Lungs decreased breath sounds pn left lung poole with ronchi Abdomen Normal Bowel Sounds, Soft Neurological non verbal , nonresponsive Extremities open wounds on the left buttock , groin appears red Last 24 Hrs of Labs/Lamont: Laboratory Tests 09/16/17 0450: Anion Gap 12, Estimated GFR > 60, BUN/Creatinine Ratio 37.5 H, Glucose 102 H, Calcium 9.7, Total Bilirubin 0.3, AST 21, ALT 36, Alkaline Phosphatase 129 H, Total Protein 7.8, Albumin 4.4, Globulin 3.4, Albumin/Globulin Ratio 1.3 09/16/17 0400: CBC w Diff NO MAN DIFF REQ, RBC 4.58 L, MCV 90.0, MCH 30.1, RDW 15.0 H, MPV 9.9, Gran % 76.9 H, Lymphocytes % 13.4 L, Monocytes % 9.1, Eosinophils % 0.3, Basophils % 0.3, Absolute Granulocytes 11.6 H, Absolute Lymphocytes 2.0, Absolute Monocytes 1.4 H, Absolute Eosinophils 0, Absolute Basophils 0, PUBS MCHC 33.5 Microbiology 09/16 08 LOWER RESP: Respiratory Culture - RECD 09/16 820 LOWER RESP: Gram Stain - RECD 09/16 0437 BLOOD: Blood Culture - RECD 09/16 035 BLOOD: Blood Culture - ORD Assessment/Plan Assessment: Patient is a 27-year-old gentleman from [facility] the past 9 years history significant for severe learning disability(performed intellectual disabilities )secondary to spastic quadriplegic cerebral palsy, history of epileptic and tonic-clonic seizures since status post vagal nerve stimulator, history of scoliosis, history of dysphagia on chronic feeding via G - tube complicated with recurrent aspiration pneumonias requiring multiple hospital admissions is brought in to the ED when ambulance with a chief complaint of low-grade temperature, productive cough and low oxygen levels In the ER patient was suctioned with the Yanker and oxygen levels improved to 95 % on 2 L. He had a low grade temperature of 99.9 with a borderline blood pressure. Patient was noted to have open wounds on the left buttock and groin appeared red. Labs were evident for leukocytosis and chest x-ray revealed hazy opacity within the left mid lung and retrocardiac opacity, reflecting possible atelectasis/ pneumonia. Problem list 1. Acute hypoxic respiratory failure with Sepsis due to aspiration pneumonia 2. Open wound on the left buttock. 3.History of severe learning disability(performed intellectual disabilities ) secondary to spastic quadriplegic cerebral palsy 4.history of epileptic and tonic-clonic seizures since status post vagal nerve stimulator Plan 1. Acute hypoxic respiratory failure with Sepsis due to aspiration pneumonia: * Admit the patient [facility] floor * Patient already received IV Unasyn in the ED, continue IV Unasyn for possible aspiration pneumonia * Obtain blood and urine cultures. * Continue IV hydration * Monitor vitals every 4 hours * Continue oxygen to keep saturations above 92% * Tylenol as needed for fever. 2. Open wound on the left buttock. * Continue skin care with the statin, bacitracin and erythromycin ointment. * Obtain wound consult. 3.History of severe learning disability(performed intellectual disabilities ) secondary to spastic quadriplegic cerebral palsy. * Continue tube feeds 4.history of epileptic and tonic-clonic seizures since status post vagal nerve stimulator * Continue all antiseizure medications through tube feeds. DVT prophylaxis with subcutaneous Lovenox Pain control with Tylenol Patient is full code As Ranked By This Provider Problem List: 1. Skin ulcer of scrotum 2. Acute respiratory failure with hypoxia 3. Fever 4. Aspiration into airway Core Measures/Misc (06/05) Acute Coronary Syndrome ACS Diagnosis: No Congestive Heart Failure Congestive Heart Failure Diagnosis No Cerebrovascular Accident CVA/TIA Diagnosis: No VTE (View Protocol) VTE Risk Factors No risk factors No Mechanical VTE Prophylaxis d/t LowRisk-No Interven Req'd No VTE Pharm Prophylaxis d/t LowRisk-No Interven Req'd Sepsis (View protocol) Sepsis Present: No Resident Review Statement Resident Statement: examined this patient, discussed with mba intern Emperatriz Cline 09/16/17 1446: Attending MD Review Statement Attending Statement Attending MD Statement: examined this patient, discuss w/resident/PA/CAD DEVELOPER, agreed w/resident/PA/CAD DEVELOPER, reviewed EMR data (avail), discussed with nursing, discussed with case mgmt Attending Assessment/Plan: Pt is know to me from previous admission. Pt has h/o severe mental retardation , cerbral palsy and spastic quadriplegai and dysphagia with PEG tube placement and recent h/o of aspiration pneumonia. Pt brought from shelter for low grade fevers, increased secretions and decrease oxygen saturations. pt on CXR in ER shows left sided pneumonia. Aspiration pneumonia- cont pt on iv unasyn and will f/u on wbc to see if it is resolving. give iv fluids for hydration. Decubitus ulcers on buttocks - will get wound care consult. Seizure disorder- pt on multiple seizure meds. cont on that.
[2017-09-16 09:06] VITALS: BP 142/70
[2017-09-16 14:29] VITALS: BP 130/80
--- NOTE | 2017-09-16 14:45 | Admission Certification ---
Admission Certification Certification Statement - As attending physician, I certify that at the time of - admission, based on clinical presentation, severity of - symptoms, need for further diagnostic testing and - therapeutic interventions, and risk of adverse outcomes - without in-hospital treatment, in my clinical assessment, - this patient requires an acute hospital stay for a minimum - of two nights or longer. I have also considered psychsocial - factors such as support system, advanced age, financial - issues, cognitive issues, and failed out-patient treatments, - past re-admission history, safety of patient, and lack of - compliance as applicable. Specific rationale supporting this admission is: aspiration pneumonia
[2017-09-16 23:35] VITALS: BP 122/77
[2017-09-17 06:03] VITALS: BP 126/78
[2017-09-17 09:05] LABS: ABSOLUTE BASOPHIL COUNT 0 /CUMM (0.0-0.2); ABSOLUTE GRANULOCYTE CT 3.9 /CUMM (1.4-6.5); BASOPHIL % 0.3 % (0.0-2.0)
[2017-09-17 09:40] LABS: ABSOLUTE EOSINOPHIL COUNT 0.1 /CUMM (0.0-0.7); ABSOLUTE MONOCYTE COUNT 0.6 /CUMM (0.10-0.60); EOSINOPHIL % 0.9 % (0-5); GRANULOCYTE % 59.5 % (42.2-75.2); MEAN CORPUSCULAR HGB CONC 33.4 G/DL (33.0-37.0); MEAN CORPUSCULAR VOLUME 89.7 FL (80.0-94.0); MEAN PLATELET VOLUME 9.8 FL (7.4-10.4); PLATELET COUNT 263 /CUMM (130-400); RBC DISTRIBUTION WIDTH 14.8 % (11.5-14.5); RED BLOOD CELL CT 4.02 /CUMM (4.70-6.10)
[2017-09-17 09:51] LABS: WHITE BLOOD CELL COUNT 6.5 /CUMM (4.8-10.8)
--- NOTE | 2017-09-17 11:40 | PN- Att Addend ---
Attending Addendum Attending Brief Note Patient seen and examined. He is afebrile at 97.6, blood pressure is 126/78, heart rate is 97 and he is satting well on 1 L of oxygen. He is nonverbal, lungs have decreased breath sounds with some scattered rhonchi , heart is S1-S2 regular, abdomen has the G-tube he has erythema in his groin and buttock decubitus. White count has gone from 15-6000. 27-year-old cerebral palsy intellectual disability and spasticity. He has chronic dysphagia and feeding is done while a G-tube and lives in a long-term. He is brought in with an aspiration pneumonia. We are treating him with IV Unasyn, IV hydration and close suctioning. Follow up sputum Gram stain and culture.
[2017-09-17 22:10] VITALS: BP 120/80
[2017-09-18 07:06] VITALS: BP 130/84
[2017-09-18 08:37] LABS: ABSOLUTE BASOPHIL COUNT 0 /CUMM (0.0-0.2); ABSOLUTE EOSINOPHIL COUNT 0.1 /CUMM (0.0-0.7); ABSOLUTE GRANULOCYTE CT 3.2 /CUMM (1.4-6.5); ABSOLUTE LYMPH COUNT 2.1 /CUMM (1.2-3.4); ABSOLUTE MONOCYTE COUNT 0.7 /CUMM (0.10-0.60); BASOPHIL % 0.3 % (0.0-2.0); EOSINOPHIL % 1.8 % (0-5); GRANULOCYTE % 52.9 % (42.2-75.2); HEMATOCRIT 32.2 % (42-52); MEAN CORPUSCULAR HGB 30.4 PG (27.0-31.0); MEAN CORPUSCULAR HGB CONC 33.9 G/DL (33.0-37.0); MEAN CORPUSCULAR VOLUME 89.7 FL (80.0-94.0); MEAN PLATELET VOLUME 9.3 FL (7.4-10.4); PLATELET COUNT 223 /CUMM (130-400); RBC DISTRIBUTION WIDTH 14.9 % (11.5-14.5); RED BLOOD CELL CT 3.59 /CUMM (4.70-6.10); WHITE BLOOD CELL COUNT 6.1 /CUMM (4.8-10.8)
--- NOTE | 2017-09-18 10:58 | PN- Att Addend ---
Attending Addendum Attending Brief Note Patient seen and examined. He is afebrile at 97.6, blood pressure is 120/75, heart rate is 90 and he is satting well on 1 L of oxygen. He is nonverbal, lungs have decreased breath sounds with some scattered rhonchi , heart is S1-S2 regular, abdomen has the G-tube he has erythema in his groin and buttock decubitus. White count has gone from 15 to 6000. 27-year-old cerebral palsy intellectual disability and spasticity. He has chronic dysphagia and feeding is done while a G-tube and lives in a halfway. He is brought in with an aspiration pneumonia. We are treating him with IV Unasyn, IV hydration and close suctioning. Follow up sputum Gram stain and culture.
[2017-09-18 15:36] VITALS: BP 128/80
[2017-09-18 23:01] VITALS: BP 134/107
[2017-09-19 07:37] VITALS: BP 145/98
--- NOTE | 2017-09-19 10:28 | PN- Att Addend ---
Attending Addendum Attending Brief Note Patient seen and examined. Overall he is afebrile, blood pressure is 145/98, pulse is 93 and his breathing at 16-18. He has cerebral palsy with spasticity and is nonverbal at baseline. His tube feeds are now at goal rate. Lungs have decreased breath sounds with scattered rhonchi, heart is S1-S2 regular, abdomen is soft with the PEG site appearing clean. This is a 27-year-old with chronic dysphagia, who we are treating with IV Unasyn for an aspiration pneumonia. His white count has come down nicely from 15-6 and we attained goal rate with the tube feeds. If he stays stable, anticipate discharge in a.m. with outpatient follow-up.
[2017-09-19 15:32] VITALS: BP 130/58
--- NOTE | 2017-09-19 21:10 | RADIOLOGY REPORT ---
EXAMINATION: XR PORTABLE CHEST CLINICAL INFORMATION: Aspiration pneumonia, follow-up COMPARISON: 09/16/2017 chest x-ray TECHNIQUE: Portable AP view of the chest was obtained. FINDINGS: Severe scoliosis of the spine with fusion rods again noted, unchanged. This limits evaluation. There is a vagal nerve stimulator on the left side of the thorax. There is linear density in the right lower lung, a new finding since prior exam and can represent platelike atelectasis. The full extent of hazy opacity seen in the left lung on the comparison chest x-ray cannot be evaluated due to superimposed shadow of the vagal nerve stimulator. The inferior aspect of the opacity still persists. There is suggestion of obscuration of the left costophrenic angle at this time, likely due to a small left-sided effusion. No pneumothorax. IMPRESSION: Interval development of platelike atelectasis in the right lower lung. Limited evaluation of the hazy opacity in the left lung due to superimposed shadow of the vagal nerve stimulator. The lower aspect of the opacity persists and blunting of the left costophrenic angle has developed since the prior exam, likely due to development of a small left-sided pleural effusion.
[2017-09-19 22:51] VITALS: BP 126/54
[2017-09-20 07:22] VITALS: BP 132/92
--- NOTE | 2017-09-20 07:39 | PN- Housestaff ---
Steven Marquez 09/20/17 0738: Subjective Follow-up For: aspiration PNA Subjective: I have seen and examined the patient. still had mild BL rhonchi not is distress. most likely dc to ECF today Review of Systems Constitutional: Reports: see HPI. Objective Last 24 Hrs of Vital Signs/I&O Vital Signs Date Time Temp Pulse Resp B/P B/P Pulse O2 O2 Flow FiO2 Mean Ox Delivery Rate 09/20 721 97.0 132/92 94 09/20 0000 Nasal 1.0L Cannula 09/19 2251 98.4 88 20 126/54 92 Nasal 1.0L Cannula 09/19 2041 97 Nasal 1.0L Cannula 09/19 1532 97.6 92 19 130/58 94 Nasal Cannula 09/19 0922 97 Nasal 1.0L Cannula 09/19 0800 95 Nasal 1.0L Cannula Intake & Output 09/20 0800 09/20 0000 09/19 1600 Intake Total 796 90 8411 Output Total Balance 873 88 4626 Intake, IV 800 700 Intake, Tube 60 475 Feeding Number 2 3 Bowel Movements Physical Exam General Appearance: Alert, No Acute Distress Other Physical Findings: Skin Temp/Moisture Exam: Warm/Dry HEENT Atraumatic, PERRLA, EOMI Cardiovascular Regular Rate, Normal S1, Normal S2 Lungs decreased breath sounds pn left lung poole with ronchi Abdomen Normal Bowel Sounds, Soft Neurological non verbal , nonresponsive Extremities wounds on the left buttock , groin appears red Current Medications: Current Medications Sig/Jerrod Start time Last Medication Dose Route Stop Time Status Admin Acetaminophen 650 MG Q4 HRS NEEDED PRN 09/16 0745 AC PO Acetaminophen 1,000 MG Q6P PRN 09/16 0730 AC IV Albuterol Sulfate 3 ML BID 09/16 1130 AC 09/20 INH 0956 Ampicillin Sodium/ 3,000 MG Q6 09/16 1200 AC 09/20 Sulbactam Sodium IV 1134 Sodium Chloride 100 ML Clonazepam 1 MG DAILY 09/16 1000 AC 09/20 PO 09/23 0959 0905 Docusate Sodium 100 MG DAILY NEEDED PRN 09/16 0815 AC PO Enoxaparin Sodium 40 MG DAILY 09/16 1000 AC 09/20 SC 0906 Fluticasone 2 SPRAY DAILY NEEDED PRN 09/16 0745 AC Propionate SHEYLA Guaifenesin/Codeine 10 ML Q4P PRN 09/16 0745 AC Phosphate PO Lactulose 20 GM DAILY 09/16 1000 AC 09/20 PO 0905 Loratadine 10 MG DAILY 09/16 1000 AC 09/20 PO 0905 Lorazepam 1 MG Q6P PRN 09/16 745 AC IV Lorazepam 2 MG AT BEDTIME NEED.. 09/16 0745 AC 09/18 PO 0029 Mupirocin 1 KATT TID 09/16 1000 DC 09/20 TOP 0906 Nystatin 1 KATT BID 09/16 1000 DC 09/20 TOP 0907 Perampanel 12 MG DAILY 09/16 1000 AC 09/20 PO 0906 Polyethylene Glycol 17 GM DAILY 09/16 1000 AC 09/20 PO 09 Primidone 500 MG QPM 09/160 AC 09/19 PO 0 Primidone 250 MG DAILY 09/16 1000 AC 09/20 PO 09 Assessment/Plan Assessment: Patient is a 27-year-old gentleman from [facility] the past 9 years history significant for severe learning disability(performed intellectual disabilities )secondary to spastic quadriplegic cerebral palsy, history of epileptic and tonic-clonic seizures since status post vagal nerve stimulator, history of scoliosis, history of dysphagia on chronic feeding via G - tube complicated with recurrent aspiration pneumonias requiring multiple hospital admissions is brought in to the ED when ambulance with a chief complaint of low-grade temperature, productive cough and low oxygen levels In the ER patient was suctioned with the Yanker and oxygen levels improved to 95 % on 2 L. He had a low grade temperature of 99.9 with a borderline blood pressure. Patient was noted to have open wounds on the left buttock and groin appeared red. Labs were evident for leukocytosis and chest x-ray revealed hazy opacity within the left mid lung and retrocardiac opacity, reflecting possible atelectasis/ pneumonia. Problem list 1. Acute hypoxic respiratory failure with Sepsis due to aspiration pneumonia 2. Open wound on the left buttock. 3.History of severe learning disability(performed intellectual disabilities ) secondary to spastic quadriplegic cerebral palsy 4.history of epileptic and tonic-clonic seizures since status post vagal nerve stimulator Plan 1. Acute hypoxic respiratory failure with Sepsis due to aspiration pneumonia: * IV Unasyn aspiration pneumonia, change to augmentin for 7 days * negative blood cultures so far * Continue oxygen to keep saturations above 92% * Tylenol as needed for fever. 2. Open wound on the left buttock. * Continue skin care with the statin, bacitracin and erythromycin ointment. 3.History of severe learning disability(performed intellectual disabilities ) secondary to spastic quadriplegic cerebral palsy. * Continue tube feeds 1.5 Jevity 40 ml with 150 Q4 water flush 4.history of epileptic and tonic-clonic seizures since status post vagal nerve stimulator * Continue all antiseizure medications through tube feeds. Problem List: 1. Aspiration pneumonia Pain Ratin Pain Location: n/a Pain Goal: Remain pain free Pain Plan: same Tomorrow's Labs & Rationales: dc to ecf today Alaina Baeza MD 09/20/17 0937: Attending MD Review Statement Attending Statement Attending MD Statement: examined this patient, discuss w/resident/PA/FUR BLOWER, agreed w/resident/PA/FUR BLOWER, reviewed EMR data (avail), discussed with nursing Attending Assessment/Plan: Pt is at goal rate for tube feeding. He continues to be functionally quadriplegic with his advanced cerebral palsy and intellectual disabilities and spasticity. He drools and I worry that he is going to have recurrent aspiration. At this point will switch him to by mouth Augmentin via the PEG and plan discharge. They need to follow strict aspiration precautions and keep the head of the bed asked elevated as much as possible.
--- NOTE | 2017-09-20 09:30 | Discharge Summary ---
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 He had a low grade temperature of 99.9 with a borderline blood pressure. Patient was noted to have open wounds on the left buttock and groin appeared red. Labs were evident for leukocytosis and chest x-ray revealed hazy opacity within the left mid lung and retrocardiac opacity, reflecting possible atelectasis/ pneumonia. He was admitted to general medicine floor and treated for these medical conditions 1. Acutre respiratory failure due aspiration pneumonia: Patient was sedated with IV Unasyn for 3 days later changed to by mouth Augmentin for complete 7 days of antibiotic therapy. Patient head of the bed should be elevated always and patient should be on aspiration precautions. 2. Open wound on the left buttock we Continued skin care with the statin, bacitracin and erythromycin ointment, barrier cream and frequent repositioning, recommanded by wound care Patient should follow-up with wound care and outpatient setting. 3.History of severe learning disability(performed intellectual disabilities ) secondary to spastic quadriplegic cerebral palsy/functional quadriplegia/history of epileptic and tonic-clonic seizures since status post vagal nerve stimulator. He has functional quadriplegia, We continued home medications for seizures. No episode of seizures as observed during the hospitalization. On tube feeding Jevity 1.5, 40 mL per hour with 150 mL water flushes every 4 hours. Allergies: Coded Allergies: NO KNOWN ALLERGIES (NONE 09/16/17) Pertinent Lab Results: Laboratory Tests 09/18 0607 Chemistry Sodium (137 - 145 mmol/L) 139 Potassium (3.5 - 5.1 mmol/L) 3.5 Chloride (98 - 107 mmol/L) 102 Carbon Dioxide (22 - 30 mmol/L) 29 Anion Gap (5 - 16) 8 BUN (9 - 20 mg/dL) 6 L Creatinine (0.7 - 1.2 mg/dL) 0.3 L Estimated GFR (>60 ml/min) > 60 BUN/Creatinine Ratio (7 - 25 %) 20.0 Hematology CBC w Diff NO MAN DIFF REQ WBC (4.8 - 10.8 /CUMM) 6.1 RBC (4.70 - 6.10 /CUMM) 3.59 L Hgb (14.0 - 18.0 G/DL) 10.9 L Hct (42 - 52 %) 32.2 L MCV (80.0 - 94.0 FL) 89.7 MCH (27.0 - 31.0 PG) 30.4 RDW (11.5 - 14.5 %) 14.9 H Plt Count (130 - 400 /CUMM) 223 MPV (7.4 - 10.4 FL) 9.3 Gran % (42.2 - 75.2 %) 52.9 Lymphocytes % (20.5 - 51.1 %) 34.1 Monocytes % (1.7 - 9.3 %) 10.9 H Eosinophils % (0 - 5 %) 1.8 Basophils % (0.0 - 2.0 %) 0.3 Absolute Granulocytes (1.4 - 6.5 /CUMM) 3.2 Absolute Lymphocytes (1.2 - 3.4 /CUMM) 2.1 Absolute Monocytes (0.10 - 0.60 /CUMM) 0.7 H Absolute Eosinophils (0.0 - 0.7 /CUMM) 0.1 Absolute Basophils (0.0 - 0.2 /CUMM) 0 PUBS MCHC (33.0 - 37.0 G/DL) 33.9 Disposition Summary Disposition Principal Diagnosis: Aspiration pneumonia Functional Quadriplegia Additional Diagnosis: Cerebral Palsy Spasticity, tonic-clonic seizures, decubitus ulcer on tube feeding Discharge Disposition: SNF Discharge Instructions General Discharge Information Code Status: Full Code Patient's Diet: Nothing by mouth, strict aspiration precautions, tube feeds, keep head of the bed elevated to 45 whenever possible Patient's Activity: As tolerated Follow-Up Instructions/Appts: -Please follow-up with your primary care provider within 7 days after discharge. -[facility]. -We have made changes to your home medications, please read the instructions carefully. -Please come back to the hospital if your symptoms got worse. Medications at Discharge Discharge Medications: Continue taking these medications: Clonazepam (Klonopin) 1 MG TABLET 1 Tablet ORAL DAILY Comments: Last Taken: 09/20/17 Time: 9AM Primidone (Mysoline) 250 MG TABLET 1 Tablet G TUBE DAILY Comments: Last Taken: 09/20/17 Time: 9AM Primidone (Mysoline) 250 MG TABLET 2 Tablet G TUBE Every night Comments: Last Taken: 09/19/17 Time: 2050PM Polyethylene Glycol 3350 (Miralax) 17 GRAM POWD.PACK 1 Packet G TUBE DAILY Instructions: dissolve in water Comments: Last Taken: 09/20/17 Time: 9AM Rufinamide (Banzel) 400 MG TABLET 4 Tablet G TUBE TWICE DAILY Qty = 120 Comments: NOT GIVEN IN HOSPITAL Fluticasone Propionate (Flonase Allergy Relief) 50 MCG/ACTUATION SPRAY.SUSP 1 [place] In the nose DAILY Comments: NOT GIVEN IN HOSPITAL Bacitracin (Bacitracin) 500 UNIT/GRAM OINT...G. 1 Application On the skin 4 TIMES A DAY Instructions: apply to affected area(s) Comments: NOT GIVEN IN HOSPITAL Nystatin (Nystatin) 1 BILLION UNIT POWDER.EA. 1 Application On the skin TWICE DAILY as needed for AFFECTED AREAS Comments: Last Taken: 09/20/17 Time: 9AM Zinc Oxide (Diaper Rash) 10 % OINT...G. 1 Application On the skin DAILY as needed for AFFECTED AREAS Comments: NOT GIVEN IN HOSPITAL Albuterol Sulfate (Albuterol Sulfate) 2.5 MG/3 ML (0.083 %) VIAL.NEB 1 Vial Inhale Solution EVERY 4 HOURS NEEDED as needed for WHEEZING Comments: Last Taken: 09/20/17 Time: 10AM Lorazepam (Lorazepam Intensol) 2 MG/ML ORAL.CONC 1 Milliliters SUBLINGUAL DAILY as needed for AFTER SEIZURE Comments: NOT GIVEN IN HOSPITAL Loratadine (Claritin) 5 MG/5 ML SOLUTION 10 Milliliters G TUBE DAILY Comments: Last Taken: 09/20/17 Time: 9AM Erythromycin Base/Ethanol (Erythromycin 2% Solution) 2 % SOLUTION 1 Application On the skin TWICE DAILY Comments: NOT GIVEN IN HOSPITAL Sodium Chloride For Inhalation (Sodium Chloride) 0.9 % VIAL.NEB 1 VIAL ORAL EVERY SIX HOURS Qty = 360 Comments: NOT GIVEN IN HOSPITAL Docusate Sodium (Stool Softener) 50 MG/5 ML LIQUID 10 Milliliters G TUBE DAILY Comments: NOT GIVEN IN HOSPITAL Guaifenesin/Dextromethorphan (Adult Robitussin Peak Cold Liq) 100 MG-10 MG/5 ML LIQUID 10 Milliliters G TUBE THREE TIMES DAILY as needed for COUGH Qty = 210 Instructions: TAKE FOR 7 DAYS Comments: NOT GIVEN IN HOSPITAL Lactose-Reduced Food/Fiber (Jevity 1.5 Sam Liquid) 0.06 GRAM-1.5 KCAL/ML LIQUID 1 Can G TUBE 5 TIMES A DAY Comments: CONTINUOUS Perampanel (Fycompa) 6 MG TABLET 1 Tablet G TUBE DAILY Qty = 120 Comments: Last Taken: 09/20/17 Time: 9AM Glycopyrrolate (Glycopyrrolate) 1 MG TABLET 1 Tablet ORAL EVERY 8 HOURS Comments: NOT GIVEN IN HOSPITAL Ipratropium [place] (Ipratropium [place]) 0.2 MG/ML (0.02 %) SOLUTION 1 Vial Inhale Solution EVERY SIX HOURS Comments: NOT GIVEN IN HOSPITAL Acetaminophen (Tylenol) 325 MG TABLET 2 Tablet ORAL EVERY 4 HOURS NEEDED as needed for MILD PAIN/FEVER Comments: NOT GIVEN IN HOSPITAL Lorazepam (Ativan) 2 MG TABLET 1 Tablet ORAL AT BEDTIME Qty = 60 Comments: NOT GIVEN IN HOSPITAL Terbinafine HCl (Lamisil At) 1 % CREAM..G. 1 Application On the skin AT BEDTIME Qty = 60 Comments: NOT GIVEN IN HOSPITAL Start taking the following new medications: Amoxicillin/Potassium Clav (Augmentin 875-125 Tablet) 875 MG-125 MG TABLET 1 Tablet ORAL TWICE DAILY Qty = 8 No Refills Comments: NOT GIVEN IN HOSPITAL Copies To: Nicolás Guerrier MD Copies To: Nicolás Guerrier MD Copies To: Nicolás Guerrier MD
[2017-09-20] MEDS ORDERED: AUGMENTIN 875-1 EACH PO (09:41)
--- NOTE | 2017-09-20 09:42 | Patient Discharge Instructions ---
Discharge Instructions General Discharge Information You were seen/treated for: Aspiration pneumonia Special Instructions: -Please follow-up with your primary care provider within 7 days after discharge. -[facility] setting. -We have made changes to your home medications, please read the instructions carefully. -Please come back to the hospital if your symptoms got worse. Diet Continue normal diet: No Additional DIET Information: On tube feeding Jevity 1.5, 40 mL per hour with 150 mL water flushes every 4 hours Activity Full Activity/No Limits: Yes ( as tolerated) Acute Coronary Syndrome Inclusion Criteria At DC or during hospital stay patient has or had the following: ACS DIAGNOSIS No Discharge Core Measures Meds if any: Prescribed or Continued at Discharge Meds if any: NOT Prescribed or Continued at Discharge Congestive Heart Failure Inclusion Criteria At DC or during hospital stay patient has or had the following: CHF DIAGNOSIS No Discharge Core Measures Meds if any: Prescribed or Continued at Discharge Meds if any: NOT Prescribed or Continued at Discharge Cerebrovascular accident Inclusion Criteria At DC or during hospital stay patient has or had the following: CVA/TIA Diagnosis No Discharge Core Measures Meds if any: Prescribed or Continued at Discharge Meds if any: NOT Prescribed or Continued at Discharge Venous thromboembolism Inclusion Criteria VTE Diagnosis No VTE Type NONE VTE Confirmed by (Test) NONE Discharge Core Measures - Per Current guidelines, there needs to be overlap - treatment for the first 5 days of Warfarin therapy. - If discharged on Warfarin prior to 5 days of - overlap therapy, the patient will need to be - assessed for post discharge needs including - *Post discharge parental anticoagulation - *Warfarin and/or parental anticoagulation education - *Follow up date to check INR post discharge At least 5 days overlap therapy as Inpatient No Meds if any: Prescribed or Continued at Discharge Note: Overlap Therapy is Warfarin and Anticoagulant Meds if any: NOT Prescribed or Continued at Discharge
[2017-09-20 14:07] VITALS: BP 132/92
[2017-09-20 14:46] VITALS: BP 122/60
== END 2017-09-20 18:00 | DRG 177 ==
LOC: ERH 03:19 → 2NB 05:23 → ERHI 05:23 → ENRESERV 07:48 → ENTRNSPT 08:24 → EDTRNSPTSTS 08:43 → EDTRNSPT 08:43 → 2NB 08:51 → CMPTRNSPT 09:12 → ENPENDDIS 09-20 14:31 → 2NB 09-20 18:00
PROVIDERS: Emergency Medicine; Student in an Organized Health Care Education/Training Program
DX: J69.0 Pneumonitis due to inhalation of food and vomit (principal); G80.0 Spastic quadriplegic cerebral palsy; J96.01 Acute respiratory failure with hypoxia; L89.319 Pressure ulcer of right buttock, unspecified stage; L89.329 Pressure ulcer of left buttock, unspecified stage; R13.10 Dysphagia, unspecified; Z93.1 Gastrostomy status; N50.89 Other specified disorders of the male genital organs; G40.909 Epilepsy, unspecified, not intractable, without status epilepticus
CPT/HCPCS: 2NBP; 36415; 71045; 82436; 87040; 87070; J0131; J1650; J7042

== ENCOUNTER 2017-11-26 14:26 | Emergency (ER) | payer OTHER, MEDICARE ==
[~2017-11-26] VITALS: Ht 147.3 cm; Wt 52.2 kg
[~2017-11-26 14:26] MED LIST changes: +ATIVAN2 MG G TUBE; -ATIVAN2 MG PO; +BACTRIM DS TAB1 EACH PO; +CEPHALEXIN250 MG/51 PO; +GLYCOPYRROLATE1 M1 G TUBE; -GLYCOPYRROLATE1 M1 PO; +KEFLEX500 M1 PO; +KLONOPIN1 M1 G TUBE; -KLONOPIN1 M1 PO; +SODIUM CHLORIDE3 ML INH; -SODIUM CHLORIDE3 ML PO; +SULFAMETHOXAZO473 ML PO; +TYLENOL325 M1 G TUBE; -TYLENOL325 M1 PO
--- NOTE | 2017-11-26 14:34 | ED GI/GU/ABDOMINAL COMPLAINT ---
History of Present Illness General Chief Complaint: General Adult Stated Complaint: BIBA, DARK URINE Source: EMS, [facility] paperwork Exam Limitations: unable to give history Vital Signs & Intake/Output Vital Signs & Intake/Output Vital Signs Date Time Temp Pulse Resp B/P B/P Pulse O2 O2 Flow FiO2 Mean Ox Delivery Rate 11/26 1725 96.0 84 18 119/76 99 Room Air 11/26 1558 60 20 140/81 100 Room Air 11/26 1435 74 18 117/82 98 Nasal 1.0L Cannula Allergies Coded Allergies: NO KNOWN ALLERGIES (NONE 11/26/17) Reconcile Medications Acetaminophen (Tylenol) 325 MG TABLET 2 TAB G TUBE Q4 HRS NEEDED PRN MILD PAIN/FEVER 100 AXILLARY (Reported) Acetaminophen (Acephen) 650 MG SUPP.RECT 1 SUPP AL AD PRN PAIN/FEVER 100 AXILLARY (Reported) Albuterol Sulfate 2.5 MG/3 ML (0.083 %) VIAL.NEB 1 Vial INH/LENNY Q4P PRN WHEEZING (Reported) Amoxicillin 500 MG TABLET 2,000 MG G TUBE AD 1 HR PRIOR TO DENTAL APPTS ( Reported) Bacitracin 500 UNIT/GRAM OINT...G. 1 KATT TOP 4 TIMES/DAY PRN MINOR ABRASION, CUTS/OPEN BLIS (Reported) apply to affected area(s) Bisacodyl 10 MG SUPP.RECT 1 SUP RC AD PRN CONSTIPATION (Reported) Clonazepam (Klonopin) 1 MG TABLET 1 TAB G TUBE QAM ANXIETY (Reported) Docusate Sodium (Stool Softener) 50 MG/5 ML LIQUID 10 ML G TUBE QAM STOOL SOFTENER (Reported) Erythromycin Base/Ethanol (Erythromycin 2% Solution) 2 % SOLUTION 1 KATT TOP BID RASH SHOULDERS/BACK/BACKSIDE (Reported) Glycopyrrolate 1 MG TABLET 1 TAB G TUBE Q8 SECRETION (Reported) Guaifenesin 100 MG/5 ML LIQUID 10 ML G TUBE Q4H PRN COUGH (Reported) Ipratropium Salley 0.2 MG/ML (0.02 %) SOLUTION 1 Vial INH/LENNY Q6 RESP. ( Reported) Lactose-Reduced Food/Fiber (Jevity 1.5 Sam Liquid) 0.06 GRAM-1.5 KCAL/ML LIQUID 40 ML G TUBE CONTINOUS INFUSION SUPPLEMENT (Reported) Loratadine (Claritin) 5 MG/5 ML SOLUTION 10 ML G TUBE QAM ALLERGIES (Reported ) Lorazepam (Lorazepam Intensol) 2 MG/ML ORAL.CONC 1 ML SL AD PRN AFTER 2ND SEIZURE IN 24H PERIO (Reported) Lorazepam (Ativan) 2 MG TABLET 1 TAB G TUBE AT BEDTIME ANXIETY (Reported) Mag Hydrox/Al Hydrox/Simeth (Maalox Advanced Suspension) (Unknown Strength) ORAL.SUSP 20 ML G TUBE 4XDAILY PRN INDIGESTION/MOANING (Reported) Na Phos,M-B/Na Phos,Di-Ba (Fleet Enema) 19 GRAM-7 GRAM/118 ML ENEMA 1 E RC AD PRN 90 MINS AFTER DULCOLAX DAY 3 (Reported) Nystatin (Unknown Strength) POWDER.EA. 1 KATT TOP BID PRN REDDENED AREA AROUND GTUBE (Reported) Perampanel (Fycompa) 6 MG TABLET 2 TAB G TUBE DAILY SEIZURES (Reported) Polyethylene Glycol 3350 (Miralax) 17 GRAM POWD.PACK 1 PAC G TUBE QAM CONSTIPATION (Reported) dissolve in water Primidone (Mysoline) 250 MG TABLET 1 TAB G TUBE DAILY SEIZURES (Reported) Primidone (Mysoline) 250 MG TABLET 2 TAB G TUBE QPM SEIZURES (Reported) Rufinamide (Banzel) 400 MG TABLET 4 TAB G TUBE BID SEIZURES (Reported) Sodium Chloride For Inhalation (Sodium Chloride) 0.9 % VIAL.NEB 1 VIAL INH Q6 SECRETIONS (Reported) Sodium Chloride For Inhalation (Sodium Chloride) 0.9 % VIAL.NEB 1 VIAL INH AD PRIOR TO OTHER MED NEBS. (Reported) Terbinafine HCl (Lamisil At) 1 % CREAM..G. 1 KATT TOP AT BEDTIME NAILS ( Reported) Zinc Oxide (Diaper Rash) 10 % OINT...G. 1 KATT TOP AD PRN AROUND GTUBE SITE FOR REDNESS (Reported) Zinc Oxide (Diaper Rash) (Unknown Strength) OINT...G. 1 KATT TOP AD WITH EACH INCONTINENT CARE (Reported) Triage Nurses Notes Reviewed? yes Onset: Gradual Timing: recent history Quality/Severity: moderate HPI: 27yo male with hx of cerebral palsy, nonverbal, MR, seizures BIBA from [facility] for dark urine today. HPI is limited d/t patient's baseline mental status. Per EMS and paperwork from [facility] patient has had dark colored urine without oher symptoms. Patient has gastric tube in place. (Corie PA,Germaine Sharmin) Past History Travel History Traveled to [place] past 21 day No Medical History Any Pertinent Medical History? see below for history Neurological: seizure, PROFOUND INTELLECTUAL D/O CEREBRAL PALSY EENT: allergies, DYSPHAGIA RECURRENT ASPIRATIONS Cardiovascular: NONE Respiratory: bronchitis Gastrointestinal: G-TUBE Hepatic: NONE Renal: NONE Musculoskeletal: SCOLIOSIS Psychiatric: NONE Endocrine: NONE Blood Disorders: NONE Cancer(s): NONE OPERATING ROOM TECHNOLOGIST/Reproductive: NONE History of MRSA: No History of VRE: No History of CDIFF: No Influenza Vaccine: 06/29/17 Surgical History Surgical History: RHODES MOHAN status post vagal nerve stimulator Psychosocial History Who do you live with Paid Attentent What is your primary language Ma[place] Family History Hx Contributory? No (Germaine Whitfield) Review of Systems Review of Systems Constitutional: Reports: no symptoms. Genitourinary: Reports: see HPI. Comments ROS limited d/t patient's baseline nonverbal status (Germaine Whitfield) Physical Exam Physical Exam General Appearance: well developed/nourished, no apparent distress, awake Head: atraumatic, normal appearance Eyes: Bilateral: normal appearance. Ears, Nose, Throat, Mouth: moist mucous membrane Neck: normal inspection, supple Respiratory: normal breath sounds, no respiratory distress, lungs clear Cardiovascular: regular rate/rhythm Gastrointestinal: normal bowel sounds, soft, non-tender, no organomegaly, G tube in place Back: normal inspection, normal range of motion Neurologic/Psych: awake, nonverbal, does not follow commands Skin: intact, normal color, warm/dry Core Measures ACS in differential dx? No Sepsis Present: No Sepsis Focused Exam Completed? No (Germaine Whitfield) Progress Differential Diagnosis: ureterolithiasis, urinary retention, urethritis, UTI/ pyelo Plan of Care: Orders Procedure Date/time Status CULTURE,URINE 11/26 1446 Active URINALYSIS 11/26 144 Complete COMPREHENSIVE METABOLIC PANEL 11/26 144 Complete CBC WITHOUT DIFFERENTIAL 11/26 1446 Complete Laboratory Tests 11/26/17 1553: Anion Gap 11, Estimated GFR > 60, BUN/Creatinine Ratio 25.0, Glucose 79, Calcium 9.7, Total Bilirubin 0.4, AST 18, ALT 37, Alkaline Phosphatase 159 H, Total Protein 7.8, Albumin 4.5, Globulin 3.3, Albumin/Globulin Ratio 1.4, CBC w Diff NO MAN DIFF REQ, RBC 4.67 L, MCV 89.3, MCH 29.8, MCHC 33.4, RDW 14.7 H, MPV 9.3, Gran % 56.2, Lymphocytes % 29.3, Monocytes % 8.2, Eosinophils % 6.0 H, Basophils % 0.3, Absolute Granulocytes 4.3, Absolute Lymphocytes 2.2, Absolute Monocytes 0.6, Absolute Eosinophils 0.5, Absolute Basophils 0 11/26/17 1540: Urinalysis MOD H, Urine Color YEL, Urine Clarity HAZY H, Urine pH 7.0, Ur Specific [place] 1.015, Urine Protein NEG, Urine Ketones NEG, Urine Nitrite NEG, Urine Bilirubin NEG, Urine Urobilinogen 0.2, Ur Leukocyte Esterase NEG, Ur Microscopic SEDIMENT EXAMINED, Urine RBC 3-5, Urine WBC 1-3 H, Ur Epithelial Cells RARE, Urine Mucus FEW, Urine Hemoglobin TRACE-INTACT H, Urine Glucose NEG Microbiology 11/26 1540 URINE ROUT: Urine Culture - RECD Patient's urine is slightly cloudy here in the ED, yellow in color. Patient with stable vital signs. Blood work and urinalysis are within normal limits, no acute abnormality. HPI and exam are limited due to the patient's baseline nonverbal status however no acute abnormality found and workup. The patient is nontoxic appearing. Patient to return to [facility] and return with worsening symptoms. The patient was discussed with Dr. Rueda who agrees with this plan. Initial ED EKG: none (Corie KOROMA,Germaine Finney) Departure Departure Disposition: HOME OR SELF CARE Condition: Stable Clinical Impression Primary Impression: Dark urine Referrals: Nicolás Guerrier MD (PCP/Family) Additional Instructions: Follow-up with primary care doctor. Return with worsening symptoms or concerns. Please note that there might be incidental findings in your evaluation that are unrelated to the current emergency department visit. Please notify your primary care doctor about this emergency department visit in order to obtain and review all of the testing performed so that these incidental findings can be monitored as needed. If you had an x-ray performed, please understand that some fractures may not be seen on the initial set of x-rays. If your symptoms persist you might need a repeat set of x-rays to check for such a fracture. If you had a laceration evaluated, please understand that foreign bodies such as glass or wood may not be visible to the naked eye or on plain x-rays. If the wound becomes red, swollen, increasingly more painful or if there is any drainage from the wound, please have it reevaluated by a physician for the possibility of a retained foreign body. If you're unable to follow up as outlined in the discharge instructions please return to the emergency department. Thank you for choosing the [facility] Emergency Department for your care. It was a pleasure to serve you today. Departure Forms: Customer Survey General Discharge Information (Corie KOROMA,Germaine Finney) PA/THREAD SEPARATOR Co-Sign Statement Statement: ED Attending supervision documentation- [] I saw and evaluated the patient. I have also reviewed all the pertinent lab results and diagnostic results. I agree with the findings and the plan of care as documented in the PA's/THREAD SEPARATOR's documentation. [X] I have reviewed the ED Record and agree with the PA's/THREAD SEPARATOR's documentation. [] Additions or exceptions (if any) to the PAs/THREAD SEPARATOR's note and plan are summarized below: [] (Marybeth GAUTHIER,Ghassan Meyer)
[2017-11-26] MEDS ORDERED: SODIUM CHLORIDE3 ML INH (15:07)
[2017-11-26] MEDS ORDERED: MAALOX ADVANCE355 M2 G TUBE (15:09)
[2017-11-26] MEDS ORDERED: ACEPHEN650 M1 PR (15:10)
[2017-11-26] MEDS ORDERED: GUAIFENESI100 MG/5 M G TUBE (15:11)
[2017-11-26] MEDS ORDERED: BISACODYL10 M1 RC (15:13)
[2017-11-26] MEDS ORDERED: FLEET ENEMA133 ML RC (15:14)
[2017-11-26] MEDS ORDERED: AMOXICILLIN500 M3 G TUBE (15:18)
[2017-11-26] MEDS ORDERED: DIAPER RASH57 GM TOP (15:22)
[2017-11-26 16:03] LABS: ABSOLUTE BASOPHIL COUNT 0 /CUMM (0.0-0.2); ABSOLUTE EOSINOPHIL COUNT 0.5 /CUMM (0.0-0.7); ABSOLUTE GRANULOCYTE CT 4.3 /CUMM (1.4-6.5); ABSOLUTE LYMPH COUNT 2.2 /CUMM (1.2-3.4); ABSOLUTE MONOCYTE COUNT 0.6 /CUMM (0.10-0.60); BASOPHIL % 0.3 % (0.0-2.0); GRANULOCYTE % 56.2 % (42.2-75.2); HEMATOCRIT 41.7 % (42-52); MEAN CORPUSCULAR HGB 29.8 PG (27.0-31.0); MEAN CORPUSCULAR HGB CONC 33.4 G/DL (33.0-37.0); MEAN CORPUSCULAR VOLUME 89.3 FL (80.0-94.0); MEAN PLATELET VOLUME 9.3 FL (7.4-10.4); PLATELET COUNT 260 /CUMM (130-400); RBC DISTRIBUTION WIDTH 14.7 % (11.5-14.5); RED BLOOD CELL CT 4.67 /CUMM (4.70-6.10); WHITE BLOOD CELL COUNT 7.6 /CUMM (4.8-10.8)
[2017-11-26 17:25] VITALS: BP 119/76
== END 2017-11-26 18:14 ==
LOC: ERH 14:26
PROVIDERS: Physician Assistant
DX: R39.9 Unspecified symptoms and signs involving the genitourinary system (principal)
CPT/HCPCS: 81001; 87086